=== PATIENT | male | born 1930 | race Caucasian/White ===

== ENCOUNTER 2016-09-13 11:33 | Day surgery (SDC) | payer MEDICARE, BC ==
[2016-09-01 08:30] VITALS: BMI 29.0
[2016-09-13] MEDS ORDERED: ceFAZolin 2 GM in SODIUM CHLORIDE 0.9% 100 ML IVPB ONE (11:57)
[2016-09-13] MEDS ORDERED: SODIUM CHLORIDE 0.9% 1,000 ML IV SCH (11:57)
[2016-09-13 12:15] VITALS: PULSE 65; RESP 20
[2016-09-13 12:18] VITALS: TEMP 98.1
[2016-09-13] MEDS ORDERED: hydrALAZINE HCL 25 MG TAB PO STA (12:26)
[2016-09-13] MEDS ORDERED: LOSARTAN-HCTZ 50-12.5 MG 1 EACH TAB PO SCH (12:30)
[2016-09-13] MEDS ORDERED: LIDOCAINE 1% INJ 10MG/ML (20 ML MDV) SQ ONE (14:11)
[2016-09-13 14:32] VITALS: BP 195/90
--- NOTE | 2016-09-13 16:39 | P.PCN ---
Preoperative Diagnosis: Loop explant under sedation and local anesthesia. Patient was brought to the EP lab in a fasting state. Written informed consent was obtained prior to the procedure. The subcutaneous device was successfully explanted under local anesthesia. Preoperative antibiotics were administered. The wound was closed in layers and dressed per protocol. Result: Successful loop monitor explantation.
== END 2016-09-13 15:10 | disposition home or self-care (01) ==
LOC: CATHEP 11:33
PROVIDERS: ATTEND Internal Medicine Clinical Cardiac Electrophysiology
DX: I48.0 Paroxysmal atrial fibrillation (principal); Z45.09 Encounter for adjustment and management of other cardiac device; G45.9 Transient cerebral ischemic attack, unspecified; I45.2 Bifascicular block; I10 Essential (primary) hypertension; Z87.891 Personal history of nicotine dependence; Z82.49 Family history of ischemic heart disease and other diseases of the circulatory system; I71.4 Abdominal aortic aneurysm, without rupture; Z79.899 Other long term (current) drug therapy; Z88.0 Allergy status to penicillin
CPT/HCPCS: 33284; J0690; J2001

== ENCOUNTER → 2018-10-01 | Outpatient (CLI) | payer MEDICARE, BC ==
--- NOTE | 2018-10-01 10:50 | CT ---
EXAMINATION TYPE: CT brain wo con DATE OF EXAM: 10/01/2018 HISTORY: subdural hematoma, hygroma, memory, speech issues. CT DLP: 1012.70 mGycm. Automated Exposure Control for Dose Reduction was Utilized. TECHNIQUE: CT scan of the head is performed without contrast. COMPARISON: CT brain August 25, 2013. FINDINGS: There are new peripheral fluid collections of CSF density over bilateral high frontal par ietal regions, left larger than right measuring up to 17 mm in thickness on the left axial image 44 a nd 9 mm in thickness on the right same image. No suspicious hypodensity is seen. No midline shift is noted. There is high left frontal marce hole with overlying skin ramu. There is diffuse ventricular and sulcal prominence consistent with diffuse age-related cerebral atrophy. There is low-attenuatio n in the periventricular white matter consistent with chronic small vessel ischemic change. Scleral c alcification both globes are seen. Vascular calcification of distal internal carotid artery and verte bral basilar system is noted with dominant left vertebral artery redemonstrated. Visualized paranasal sinuses are clear. IMPRESSION: No acute intracranial hemorrhage or midline shift. There is mild to moderate diffuse ag e-related cerebral atrophy and chronic small vessel ischemic change redemonstrated. There are new sm all to moderate size left greater than right chronic subdural hematomas or subdural hygromas noted.
== END | disposition home or self-care (01) ==
LOC: RADCTMAIN 09:49
PROVIDERS: ATTEND Neurological Surgery
DX: G31.1 Senile degeneration of brain, not elsewhere classified (principal); I67.82 Cerebral ischemia
CPT/HCPCS: 70450

== ENCOUNTER 2018-10-22 18:32 | Emergency (ER) | payer MEDICARE, BC ==
--- NOTE | 2018-10-22 19:02 | ED ---
General Adult HPI - General Stated complaint: Stroke Time Seen by Provider: 10/22/18 18:38 Source: patient, EMS Mode of arrival: EMS Limitations: no limitations - History of Present Illness Initial comments: This 88-year-old white male presents to the emergency department by EMS from [facility]. He apparently had an outpatient computed tomography scan today which shows worsening of his previously known subdural hematoma. He presents to the radiology report that shows that his subdural hematoma along the left index and the is currently 1.9 cm and was previously 1.4 cm. Appears to be evidence of interval bleeding. His previous CT was done on 09/18/2018. He does relate that he had craniotomy on 09/19/2018 at [facility]. The patient is essentially asymptomatic at this time. He denies any headache, shortness breath, chest pain, fevers, chills. He denies any neurologic complaints. Records do show that he was just at [facility] back on 04/2019 as an inpatient they do note that he had a left frontal subdural hematoma at that time which measures 1.4 cm. He was previously on his overall low but is no longer on this blood thinner. The records from [facility] relate that he had some falls back in August 2018 and was initially diagnosed with a subdural hematoma at that time. He had been having some headaches but denies any current headaches. Per records patient is a full code. No other identifiable complaints or modifying factors. Past medical history as best for hypertension subdural hematoma chronic kidney disease stage III> He is allergic to penicillin. His past surgical history is positive for craniotomy on 09/19/2018, colonoscopy, and EGD. - Related Data Home Medications Medication Instructions Recorded Confirmed Brimonidine Tartrate [Alphagan P 1 drops BOTH EYES 09/01/16 10/22/18 0.2% Ophth Soln] TID@0600,1400,2100 Pravastatin Sodium [Pravachol] 20 mg PO HS@209909/01/16 10/22/18 Tamsulosin [Flomax] 0.4 mg PO DAILY@0800 09/01/16 10/22/18 hydrALAZINE HCL [Apresoline] 25 mg PO TID@0600,1400,2100 09/01/16 10/22/18 Acetaminophen Tab [Tylenol Tab] 650 mg PO Q4H PRN 10/22/18 10/22/18 Bisacodyl [Dulcolax] 10 mg RECTAL DAILY PRN 10/22/18 10/22/18 Docusate [Colace] 100 mg PO BID@0800,1700 10/22/18 10/22/18 HYDROcodone/APAP 5-325MG [Holley 1 tab PO Q6H PRN 10/22/18 10/22/18 5-325] Hydrochlorothiazide 12.5 mg PO DAILY@0800 10/22/18 10/22/18 Losartan Potassium 100 mg PO DAILY@0800 10/22/18 10/22/18 Magnesium Hydroxide [Milk of 2,400 mg PO DAILY PRN 10/22/18 10/22/18 Magnesia] NIFEdipine XL [Procardia Xl] 60 mg PO DAILY@0800 10/22/18 10/22/18 Na Phos,M-B/Na Phos,Di-Ba [Fleet 133 ml RECTAL DAILY PRN 10/22/18 10/22/18 Adult] Sodium Chloride Tab 2 gm PO TID@0600,1400,2100 10/22/18 10/22/18 Timolol 0.5% Ophth Soln (Pf) 1 drops BOTH EYES DAILY@0800 10/22/18 10/22/18 [Timoptic 0.5% Ocudose] levETIRAcetam [Keppra] 500 mg PO BID@0800,2100 10/22/18 10/22/18 Allergies Allergy/AdvReac Type Severity Reaction Status Date / Time Penicillins Allergy Unknown Verified 10/22/18 18:46 Review of Systems ROS Statement: Those systems with pertinent positive or pertinent negative responses have been documented in the HPI. ROS Other: All systems not noted in ROS Statement are negative. Past Medical History Past Medical History: Eye Disorder, GERD/Reflux, Memory Impairment, Osteoarthritis (OA), Prostate Disorder Additional Past Medical History / Comment(s): see Dr Rocio Hastings & P, glaucoma, subdural bleed acute on chronic History of Any Multi-Drug Resistant Organisms: None Reported Past Surgical History: Cholecystectomy, Joint Replacement Additional Past Surgical History / Comment(s): cataract surg., left hip replaced Past Anesthesia/Blood Transfusion Reactions: No Reported Reaction Past Psychological History: No Psychological Hx Reported Smoking Status: Former smoker Past Alcohol Use History: None Reported Past Drug Use History: None Reported - Past Family History Mother Family Medical History: No Reported History General Exam - General Exam Comments Initial Comments: GENERAL: The patient is well nourished and well hydrated. VITAL SIGNS: Heart rate, blood pressure, respiratory rate reviewed as recorded in nurse's notes. EYES: Pupils are round and reactive. Extraocular movements are intact. No conjunctival / lid redness or swelling. ENT: No external evidence of injury, swelling, or ecchymosis. Airway is patent. Throat is clear. NECK: Nontender. No swelling or evidence of injury. No subcutaneous emphysema. Trachea is midline. No thyroid mass. HEART: Regular rate and rhythm. Good peripheral pulses. LUNGS/CHEST: Breath sounds clear and equal bilaterally. No rales, rhonchi, or wheezes. No ecchymosis, subcutaneous emphysema, or tenderness. ABDOMEN: Abdomen soft without tenderness. No palpable masses or organomegaly. No peritoneal signs. No abdominal wall swelling or ecchymosis. EXTREMITIES: No extremity tenderness. Normal muscle tone and function. No thoracolumbar tenderness. NEUROLOGIC: Sensation is grossly intact. Cranial nerve exam reveals face is symmetrical, tongue is midline, speech is clear. SKIN: No abrasions or ecchymosis is noted. No induration or masses noted. PSYCHIATRIC: Alert and pleasant, slightly confused. Limitations: no limitations Course Vital Signs 10/22/18 18:42 Temperature 98.7 F Pulse Rate 71 Respiratory 20 Rate Blood Pressure 192/89 O2 Sat by Pulse 98 Oximetry Medical Decision Making - Medical Decision Making The patient was seen and examined. All diagnostics were reviewed. An IV is established and he is placed on a bus driver/monitor. No ectopy is identified. The patient also has an EKG which shows a normal sinus rhythm at a rate of 71. There is a right bundle-branch block as well as left anterior fascicular block with associated ST-T wave changes. The [place] intervals 162, QRS duration is 152, and the QTC intervals 484. Records from the [facility] were reviewed. The CT does show interval enlargement of subdural hematoma along the left convexity. It apparently is 1.9 cm now versus 1.4 cm previously with evidence of interval bleeding. Density presently is compatible with subacute subdural hematoma with couple small areas of interval mixed acute blood products. There is mass effect on 2 the left cerebral cortex with slight increase in the degree of rightward midline shift now 5 mm versus 2 mm previously. There is similar slight subfalcine herniation. It is felt as though he would require transfer to a center that has neurosurgical capabilities. He requests transfer back to [facility] in [place] where he was seen previously by neurosurgery and had a craniotomy. Case is discussed with Dr. Pate from [facility] in [place] and he accepts the patient at 1911. Disposition Clinical Impression: Subdural hematoma Disposition: OTHER INSTITUTION NOT DEFINED Condition: Fair Is patient prescribed a controlled substance at d/c from ED?: No Referrals: Altagracia Bullard MD [Primary Care Provider] - 1-2 days Time of Disposition: 19:14 - Out of Hospital Transfer - Req. Specs Out of Hospital Transfer - Requested Specifics: Neurological ICU ([facility])
[2018-10-22 19:19] LABS: Basophils # (A) 0.1 k/uL (0-0.2); Basophils % (A) 1 %; Eosinophils # (A) 0.3 k/uL (0-0.7); Eosinophils % (A) 3 %; HCT 38.1 % (39.0-53.0); HGB 12.9 gm/dL (13.0-17.5); Lymphocytes # (A) 1.1 k/uL (1.0-4.8); Lymphocytes % (A) 15 %; MCH 30.6 pg (25.0-35.0); MCHC 33.9 g/dL (31.0-37.0); MCV 90.2 fL (80.0-100.0); Mean Platelet Volume 6.7; Monocytes # (A) 0.4 k/uL (0-1.0); Monocytes % (A) 5 %; Neutrophils # (A) 5.7 k/uL (1.3-7.7); Neutrophils % (A) 75 %; Platelet Count 194 k/uL (150-450); RBC 4.22 m/uL (4.30-5.90); RDW 13.4 % (11.5-15.5); WBC 7.6 k/uL (3.8-10.6)
[2018-10-22 19:33] LABS: Calcium 9.4 mg/dL (8.4-10.2); Potassium 3.6 mmol/L (3.5-5.1)
[2018-10-22 19:52] LABS: Partial Thromboplastin Time 24.7 sec (22.0-30.0); Prothrombin Time 10.3 sec (9.0-12.0)
[2018-10-22 19:55] VITALS: BP 178/85; PULSE 52; RESP 17
--- NOTE | 2018-10-22 19:56 | XR ---
EXAMINATION TYPE: XR chest 1V DATE OF EXAM: 10/22/2018 COMPARISON: Chest x-ray August 22, 2013 HISTORY: Weakness. TECHNIQUE: Single frontal view of the chest is obtained. FINDINGS: There is chronic parenchymal change without suspicious focal air space opacity, pleural ef fusion, or pneumothorax seen. The cardiac silhouette size is upper limits of normal with atheroscler otic and ectatic thoracic aorta, mass effect and trachea is redemonstrated. The osseous structures remain somewhat demineralized. Cannot exclude new right upper lobe nodule projecting over the posterior fifth rib and the anterior s econd rib. Nonemergent CT follow-up advised. IMPRESSION: Chronic parenchyma change without acute pulmonary process.
[2018-10-22 20:25] VITALS: TEMP 98.6
== END 2018-10-22 20:18 | disposition short-term general hospital (02) ==
LOC: EC 18:32
DX: I62.00 Nontraumatic subdural hemorrhage, unspecified (principal); I45.2 Bifascicular block; M19.90 Unspecified osteoarthritis, unspecified site; I12.9 Hypertensive chronic kidney disease with stage 1 through stage 4 chronic kidney disease, or unspecified chronic kidney disease; N18.3 Chronic kidney disease, stage 3 (moderate); Z79.899 Other long term (current) drug therapy; Z88.0 Allergy status to penicillin; Z87.891 Personal history of nicotine dependence; Z96.642 Presence of left artificial hip joint
CPT/HCPCS: 36415; 71045; 80048; 85025; 85610; 85730; 93005; 99285

== ENCOUNTER 2018-11-28 15:53 | Observation (INO) | payer MEDICARE, BC ==
[2018-11-28] MEDS ORDERED: ASPIRIN 81 MG PO STA (16:26)
[2018-11-28] MEDS ORDERED: NITROGLYCERIN OINT 1 INCH/GM PACKET TOPICAL STA (16:26)
--- NOTE | 2018-11-28 16:32 | ED ---
General Adult HPI - General Chief complaint: Chest Pain Stated complaint: Chest pain Source: patient, EMS, RN notes reviewed Mode of arrival: EMS Limitations: no limitations - History of Present Illness Initial comments: This is an 88-year-old male who presents to the emergency department complaining of chest pain. Patient's had multiple episodes chest pain since yesterday fam akshat believes it lasts 10-15 minutes. Patient is not a very good historian so he cannot elaborate on this. Patient never appeared to be having any shortness of breath. Patient had no fever chills or cough per patient has had no vomiting or diarrhea. Also family states that he was post get a CAT scan of his brain on Monday because he has a shunt and they've noticed just a little change in his al tered mental status. Family states it takes him just a little bit longer to say something and it did a few weeks ago. Patient has had no recent injury or fall. - Related Data Home Medications Medication Instructions Recorded Confirmed Brimonidine Tartrate [Alphagan P 1 drops BOTH EYES 09/01/16 11/28/18 0.2% Ophth Soln] TID@0600,1400,2200 Pravastatin Sodium [Pravachol] 20 mg PO HS@199909/01/16 11/28/18 Tamsulosin [Flomax] 0.4 mg PO DAILY@0800 09/01/16 11/28/18 hydrALAZINE HCL [Apresoline] 75 mg PO TID@0600,1400,199909/01/16 11/28/18 Acetaminophen Tab [Tylenol Tab] 650 mg PO Q4H PRN 10/22/18 11/28/18 Docusate [Colace] 100 mg PO BID@0800,199910/22/18 11/28/18 Losartan Potassium 100 mg PO DAILY@1600 10/22/18 11/28/18 NIFEdipine XL [Procardia Xl] 60 mg PO DAILY@0800 10/22/18 11/28/18 Timolol 0.5% Ophth Soln (Pf) 1 drops BOTH EYES HS@199910/22/18 11/28/18 [Timoptic 0.5% Ocudose] levETIRAcetam [Keppra] 500 mg PO BID@0800,199910/22/18 11/28/18 Labetalol [Trandate] 100 mg PO BID@0600,1800 11/28/18 11/28/18 Ramelteon [Rozerem] 8 mg PO HS@2000 11/28/18 11/28/18 Allergies Allergy/AdvReac Type Severity Reaction Status Date / Time Penicillins Allergy Unknown Verified 11/28/18 16:31 Review of Systems ROS Statement: Those systems with pertinent positive or pertinent negative responses have been documented in the HPI. ROS Other: All systems not noted in ROS Statement are negative. Past Medical History Past Medical History: Eye Disorder, GERD/Reflux, Memory Impairment, Osteoa rthritis (OA), Prostate Disorder Additional Past Medical History / Comment(s): see Dr Chan H & P, glaucoma, subdural bleed acute on chronic History of Any Multi-Drug Resistant Organisms: None Reported Past Surgical History: Cholecystectomy, Joint Replacement Additional Past Surgical History / Comment(s): cataract surg., left hip replaced Past Anesthesia/Blood Transfusion Reactions: No Reported Reaction Past Psychological History: No Psychological Hx Reported Smoking Status: Former smoker Past Alcohol Use History: None Reported Past Drug Use History: None Reported - Past Family History Mother Family Medical History: No Reported History General Exam - General Exam Comments Initial Comments: GENERAL: Patient is well-developed and well-nourished. Patient is nontoxic and well- hydrated and is in no acute distress. ENT: Neck is soft and supple. No significant lymphadenopathy is noted. Oropharynx is clear. Moist mucous membranes. Neck has full range of motion without eliciting any pain. EYES: The sclera were anicteric and conjunctiva were pink and moist. Extraocular movements were intact and pupils were equal round and reactive to light. Eyelids were unremarkable. PULMONARY: Unlabored respirations. Good breath sounds bilaterally. No audible rales rhonchi or wheezing was noted. CARDIOVASCULAR: Patient has a regular rate and rhythm at about 50 beats a minute ABDOMEN: Soft and nontender with normal bowel sounds. No palpable organomegaly was noted. There is no palpable pulsatile mass. SKIN: Skin is clear with no lesions or rashes and otherwise unremarkable. NEUROLOGIC: Patient is alert and oriented 2. Cranial nerves II through XII are grossly intact. Motor and sensory are also intact. Normal speech, volume and content. Symmetrical smile. MUSCULOSKELETAL: Normal extremities with adequate strength and full range of motion. No lower extremity swelling or edema. No calf tenderness. LYMPHATICS: No significant lymphadenopathy is noted PSYCHIATRIC: Normal psychiatric evaluation. Limitations: no limitations Course Vital Signs 11/28/18 11/28/18 11/28/18 16:12 16:15 17:48 Temperature 98.0 F Pulse Rate 57 L 51 L Pulse Rate [ 50 L Bilateral Farm Equipment Mechanic ] Respiratory 18 18 Rate Blood Pressure 157/71 157/72 O2 Sat by Pulse 99 100 Oximetry 11/28/18 18:31 Temperature Pulse Rate 51 L Pulse Rate [ Bilateral Farm Equipment Mechanic ] Respiratory 18 Rate Blood Pressure 135/70 O2 Sat by Pulse 97 Oximetry Medical Decision Making - Medical Decision Making EKG shows sinus bradycardia 55 bpm WA interval 276 QS on a 50 QT interval 42 QTC is 461. Patient's EKG shows right bundle branch block. There is no significant ST segment elevation. CT of the brain shows improvement of the hygromas. Chest x-ray shows no acute abnormality. Patient still having intermittent atypical chest pain in the emergency dep artment. Patient did not get any aspirin or heparin secondary to the fact that the patient has had intercranial hemorrhage in the past. - Lab Data Result diagrams: 11/28/18 16:06 11/28/18 16:06 Lab Results 11/28/18 11/28/18 11/28/18 Range/Units 16:06 16:06 16:06 WBC 6.8 (3.8-10.6) k/uL RBC 3.72 L (4.30-5.90) m/uL Hgb 11.1 L (13.0-17.5) gm/dL Hct 34.7 L (39.0-53.0) % MCV 93.3 (80.0-100.0) fL MCH 29.9 (25.0-35.0) pg MCHC 32.0 (31.0-37.0) g/dL RDW 13.3 (11.5-15.5) % Plt Count 182 (150-450) k/uL Neutrophils % 73 % Lymphocytes % 15 % Monocytes % 6 % Eosinophils % 3 % Basophils % 1 % Neutrophils # 4.9 (1.3-7.7) k/uL Lymphocytes # 1.0 (1.0-4.8) k/uL Monocytes # 0.4 (0-1.0) k/uL Eosinophils # 0.2 (0-0.7) k/uL Basophils # 0.0 (0-0.2) k/uL PT 10.4 (9.0-12.0) sec INR 1.0 (<1.2) APTT 26.2 (22.0-30.0) sec Sodium 138 (137-145) mmol/L Potassium 5.1 (3.5-5.1) mmol/L Chloride 103 (98-107) mmol/L Carbon Dioxide 27 (22-30) mmol/L Anion Gap 8 mmol/L BUN 27 H (9-20) mg/dL Creatinine 1.34 H (0.66-1.25) mg/dL Est GFR (CKD-EPI)AfAm 55 (>60 ml/min/1.73 sqM) Est GFR (CKD-EPI)NonAf 48 (>60 ml/min/1.73 sqM) Glucose 87 (74-99) mg/dL Calcium 9.2 (8.4-10.2) mg/dL Magnesium 2.4 H (1.6-2.3) mg/dL Total Bilirubin 0.7 (0.2-1.3) mg/dL AST 25 (17-59) U/L ALT 15 L (21-72) U/L Alkaline Phosphatase 55 (38-126) U/L Troponin I (0.000-0.034) ng/mL Total Protein 6.6 (6.3-8.2) g/dL Albumin 3.6 (3.5-5.0) g/dL 11/28/18 Range/Units 16:06 WBC (3.8-10.6) k/uL RBC (4.30-5.90) m/uL Hgb (13.0-17.5) gm/dL Hct (39.0-53.0) % MCV (80.0-100.0) fL MCH (25.0-35.0) pg MCHC (31.0-37.0) g/dL RDW (11.5-15.5) % Plt Count (150-450) k/uL Neutrophils % % Lymphocytes % % Monocytes % % Eosinophils % % Basophils % % Neutrophils # (1.3-7.7) k/uL Lymphocytes # (1.0-4.8) k/uL Monocytes # (0-1.0) k/uL Eosinophils # (0-0.7) k/uL Basophils # (0-0.2) k/uL PT (9.0-12.0) sec INR (<1.2) APTT (22.0-30.0) sec Sodium (137-145) mmol/L Potassium (3.5-5.1) mmol/L Chloride (98-107) mmol/L Carbon Dioxide (22-30) mmol/L Anion Gap mmol/L BUN (9-20) mg/dL Creatinine (0.66-1.25) mg/dL Est GFR (CKD-EPI)AfAm (>60 ml/min/1.73 sqM) Est GFR (CKD-EPI)NonAf (>60 ml/min/1.73 sqM) Glucose (74-99) mg/dL Calcium (8.4-10.2) mg/dL Magnesium (1.6-2.3) mg/dL Total Bilirubin (0.2-1.3) mg/dL AST (17-59) U/L ALT (21-72) U/L Alkaline Phosphatase (38-126) U/L Troponin I <0.012 (0.000-0.034) ng/mL Total Protein (6.3-8.2) g/dL Albumin (3.5-5.0) g/dL Disposition Clinical Impression: Chest pain Disposition: ADMITTED IP TO THIS HOSP Referrals: None,Stated [REFERRING] - 1-2 days Time of Disposition: 19:08
--- NOTE | 2018-11-28 17:49 | CT ---
EXAMINATION TYPE: CT brain wo con DATE OF EXAM: 11/28/2018 COMPARISON: 10/01/2018 HISTORY: Altered mental status. CT DLP: 1066.4 mGycm Automated exposure control for dose reduction was used. FINDINGS: There is cerebral cortical atrophy. There is no mass effect nor midline shift. There is no sign of in tracranial hemorrhage. Calvarium is intact. There is left frontal craniotomy defect. IMPRESSION: CEREBRAL ATROPHY. MILD CHRONIC SMALL VESSEL ISCHEMIA. NO ACUTE INTRACRANIAL ABNORMALITY. THERE IS SLIME ARING OF THE BILATERAL SUBDURAL HYGROMAS COMPARED TO OLD EXAM.
--- NOTE | 2018-11-28 17:52 | XR ---
EXAMINATION TYPE: XR chest 2V DATE OF EXAM: 11/28/2018 COMPARISON: 10/22/2018 HISTORY: Left side chest pain TECHNIQUE: Frontal and lateral views of the chest are obtained. FINDINGS: Heart is normal. Lungs are clear of infiltrate. There is minimal nodularity in the right m idlung consistent with old granulomatous disease. There is no pleural effusion. Thoracic aorta is ath eromatous. Bony thorax is intact. IMPRESSION: Atheromatous aorta. No acute lung disease. Normal heart. No adverse change compared to o ld exam. There is no evidence of right upper lobe nodule. Old granulomatous disease.
[2018-11-28 17:57] LABS: Basophils % (A) 1 %; Eosinophils # (A) 0.2 k/uL (0-0.7); Eosinophils % (A) 3 %; HCT 34.7 % (39.0-53.0); HGB 11.1 gm/dL (13.0-17.5); Lymphocytes % (A) 15 %; MCH 29.9 pg (25.0-35.0); MCV 93.3 fL (80.0-100.0); Mean Platelet Volume 8.4; Monocytes # (A) 0.4 k/uL (0-1.0); Monocytes % (A) 6 %; Neutrophils # (A) 4.9 k/uL (1.3-7.7); Neutrophils % (A) 73 %; Platelet Count 182 k/uL (150-450); RBC 3.72 m/uL (4.30-5.90); RDW 13.3 % (11.5-15.5); WBC 6.8 k/uL (3.8-10.6)
[2018-11-28 18:08] LABS: Partial Thromboplastin Time 26.2 sec (22.0-30.0); Prothrombin Time 10.4 sec (9.0-12.0)
[2018-11-28 18:18] LABS: Albumin 3.6 g/dL (3.5-5.0); Calcium 9.2 mg/dL (8.4-10.2); Magnesium 2.4 mg/dL (1.6-2.3); Total Bilirubin 0.7 mg/dL (0.2-1.3); Total Protein 6.6 g/dL (6.3-8.2)
[2018-11-28 18:20] LABS: Potassium 5.1 mmol/L (3.5-5.1)
[2018-11-28] MEDS ORDERED: NITROGLYCERIN SL TABS 0.4 MG TAB SUBLINGUAL PRN (19:08)
[2018-11-28] MEDS ORDERED: ACETAMINOPHEN TAB 325 MG TAB PO PRN (22:53)
[2018-11-28] MEDS ORDERED: PRAVASTATIN SODIUM 20 MG TAB PO SCH (23:00)
[2018-11-28] MEDS ORDERED: TIMOLOL 0.5% OPHTH SOLN (PF) 0.2 ML DROPERETTE BOTH EYES SCH (23:00)
[2018-11-29] MEDS: BRIMONIDINE TARTRATE 0.2% DROPS 5 ML BTL BOTH EYES SCH ×3 (00:26→16:54)
[2018-11-29] MEDS: hydrALAZINE HCL 25 MG TAB PO SCH ×3 (00:30→14:41)
[2018-11-29] MEDS ORDERED: ZOLPIDEM 5 MG TAB PO SCH (00:30)
[2018-11-29] MEDS: levETIRAcetam 500 MG TAB PO SCH ×2 (00:31→09:12)
[2018-11-29] MEDS: LABETALOL 100 MG TAB PO SCH ×2 (00:31→05:18)
[2018-11-29 00:59] VITALS: BMI 23.8
[2018-11-29 06:22] LABS: Cholesterol 113 mg/dL (<200); HDL Cholesterol 33 mg/dL (40-60); LDL Cholesterol,Calculated 62 mg/dL (0-99); Triglycerides 88 mg/dL (<150)
[2018-11-29] MEDS ORDERED: DOCUSATE 100 MG CAP PO SCH (08:00)
[2018-11-29 08:18] VITALS: RESP 18
[2018-11-29] MEDS ORDERED: ASPIRIN 325 MG TAB PO SCH (09:00)
[2018-11-29] MEDS ORDERED: SODIUM CHLORIDE 0.9% 1,000 ML IV SCH (11:15)
[2018-11-29 11:44] LABS: Appearance,Urine Clear (Clear); Bacteria,Urine Rare /hpf; Bilirubin,Urine Negative (Negative); Blood,Urine Negative (Negative); Color,Urine Yellow; Glucose,Urine (UA) Negative (Negative); Ketones,Urine Negative (Negative); Leukocyte Esterase,Urine Small (Negative); Mucus,Urine Rare /hpf; Nitrite,Urine Negative (Negative); PH, Urine 7.5 (5.0-8.0); Protein,Urine Trace (Negative); Specific Gravity,Urine 1.012 (1.001-1.035); Squamous Epithelial Cell,Urine <1 /hpf (0-4); Urobilinogen,Urine <2.0 mg/dL (<2.0); WBC,Urine 4 /hpf (0-5)
[2018-11-29] MEDS ORDERED: SODIUM CHLORIDE 0.9% 1,000 ML IV ONE (11:56)
--- NOTE | 2018-11-29 12:40 | P.HPIM ---
History of Present Illness 71-year-old pleasant gentleman came in with complaints of chest pain on the side of the chest which lasted for 2 minutes, mild chest pain nonpleuritic not associated with lightheadedness questionable diaphoresis. Not associated with food denied any nausea vomiting diarrhea, fever chills. Patient does have history of dementia mental status appears to be baseline alert oriented 3 able to provide me good history denied any dysuria denied any cough runny nose. Patient appears to be bit dehydrated with a serum creatinine of 1.34 baseline around 1.1 patient will be given IV fluids. Cardiology valid the patient troponins are negative please refer to cardiology dictation for EKG changes and patient will undergo echocardiogram and if further doesn't show any wall motion abnormalities patient will be discharged today back to where he came from. Patient doesn't have any increased confusion at this time. He denied dysuria c ough runny nose no evidence of fever sepsis. No leukocytosis Review of Systems REVIEW OF SYSTEMS: CONSTITUTIONAL: No fever, no malaise, no fatigue. HEENT: No recent visual problems or hearing problems. Denied any sore throat. CARDIOVASCULAR: No orthopnea, PND, no palpitations, no syncope. PULMONARY: No shortness of breath, no cough, no hemoptysis. GASTROINTESTINAL: No diarrhea, no nausea, no vomiting, no abdominal pain. NEUROLOGICAL: No headaches, no weakness, no numbness. HEMATOLOGICAL: Denies any bleeding or petechiae. GENITOURINARY: Denies any burning micturition, frequency, or urgency. MUSCULOSKELETAL/RHEUMATOLOGICAL: Denies any joint pain, swelling, or any muscle pain. ENDOCRINE: Denies any polyuria or polydipsia. The rest of the 14-point review of systems is negative. Past Medical History Past Medical History: Cancer, CVA/TIA, Dementia, Eye Disorder, GERD/Reflux, Memory Impairment, Osteoarthritis (OA), Prostate Disorder Additional Past Medical History / Comment(s): see Dr Chan H & P, glaucoma, subdural bleed acute on chronic x2 ([employer]). History of Any Multi-Drug Resistant Organisms: None Reported Past Surgical History: Cholecystectomy, Joint Replacement Additional Past Surgical History / Comment(s): cataract surg., left hip replaced Past Anesthesia/Blood Transfusion Reactions: No Reported Reaction Past Psychological History: No Psychological Hx Reported Smoking Status: Former smoker Past Alcohol Use History: None Reported Additional Past Alcohol Use History / Comment(s): quit smoking in the 70's, smoked for 10-15 yrs. Past Drug Use History: None Reported - Past Family History Mother Family Medical History: No Reported History Father Family Medical History: No Reported History Medications and Allergies Home Medications Medication Instructions Recorded Confirmed Type Brimonidine Tartrate [Alphagan P 1 drops BOTH EYES 09/01/16 11/28/18 History 0.2% Ophth Soln] TID@0600,1400,2200 Pravastatin Sodium [Pravachol] 20 mg PO HS@199909/01/16 11/28/18 History Tamsulosin [Flomax] 0.4 mg PO DAILY@0800 09/01/16 11/28/18 History Acetaminophen Tab [Tylenol Tab] 650 mg PO Q4H PRN 10/22/18 11/28/18 History Docusate [Colace] 100 mg PO BID@0800,199910/22/18 11/28/18 History Losartan Potassium 100 mg PO DAILY@1600 10/22/18 11/28/18 History NIFEdipine XL [Procardia Xl] 60 mg PO DAILY@0800 10/22/18 11/28/18 History Timolol 0.5% Ophth Soln (Pf) 1 drops BOTH EYES HS@199910/22/18 11/28/18 History [Timoptic 0.5% Ocudose] levETIRAcetam [Keppra] 500 mg PO BID@0800,199910/22/18 11/28/18 History Ramelteon [Rozerem] 8 mg PO HS@199911/28/18 11/28/18 History Labetalol [Trandate] 50 mg PO BID@0600,1800 #0 11/29/18 11/28/18 Rx hydrALAZINE HCL [Apresoline] 100 mg PO TID #90 tab 11/29/18 Rx Allergies Allergy/AdvReac Type Severity Reaction Status Date / Time Penicillins Allergy Unknown Verified 11/28/18 16:31 Physical Exam Vitals: Vital Signs Temp Pulse Pulse Pulse Resp BP BP 11/29/18 08:00 97.5 F L 60 18 160/69 11/29/18 05:20 50 L 17 155/80 11/29/18 04:07 97.3 F L 53 L 16 144/58 11/29/18 03:34 53 L 16 11/29/18 00:37 97.7 F 63 16 144/68 11/29/18 00:00 63 16 11/28/18 22:30 97.8 F 57 L 16 145/62 11/28/18 22:03 55 L 16 155/73 11/28/18 20:20 17 11/28/18 18:31 51 L 18 135/70 11/28/18 17:48 51 L 18 157/72 11/28/18 16:15 50 L 11/28/18 16:12 98.0 F 57 L 18 157/71 Pulse Ox 11/29/18 08:00 95 11/29/18 05:20 98 11/29/18 04:07 97 11/29/18 03:34 11/29/18 00:37 98 11/29/18 00:00 11/28/18 22:30 100 11/28/18 22:03 99 11/28/18 20:20 11/28/18 18:31 97 11/28/18 17:48 100 11/28/18 16:15 11/28/18 16:12 99 Intake and Output 11/28/18 11/29/18 11/29/18 22:59 06:59 14:59 Other: Voiding Method Toilet Toilet Urinal Urinal # Voids 2 1 Weight 71.214 kg PHYSICAL EXAMINATION: GENERAL: The patient is alert and oriented x3, not in any acute distress. Well developed, well nourished. HEENT: Pupils are round and equally reacting to light. EOMI. No scleral icterus. No conjunctival pallor. Normocephalic, atraumatic. No pharyngeal erythema. No thyromegaly. CARDIOVASCULAR: S1 and S2 present. No murmurs, rubs, or gallops. PULMONARY: Chest is clear to auscultation, no wheezing or crackles. ABDOMEN: Soft, nontender, nondistended, normoactive bowel sounds. No palpable organomegaly. MUSCULOSKELETAL: No joint swelling or deformity. EXTREMITIES: No cyanosis, clubbing, or pedal edema. NEUROLOGICAL: Gross neurological examination did not reveal any focal deficits. SKIN: No rashes. Results CBC & Chem 7: 11/28/18 16:06 11/28/18 16:06 Labs: Abnormal Lab Results - Last 24 Hours (Table) 11/28/18 11/28/18 11/29/18 Range/Units 16:06 16:06 05:43 RBC 3.72 L (4.30-5.90) m/uL Hgb 11.1 L (13.0-17.5) gm/dL Hct 34.7 L (39.0-53.0) % BUN 27 H (9-20) mg/dL Creatinine 1.34 H (0.66-1.25) mg/dL Magnesium 2.4 H (1.6-2.3) mg/dL ALT 15 L (21-72) U/L HDL Cholesterol 33 L (40-60) mg/dL Urine Protein (Negative) Ur Leukocyte Esterase (Negative) Urine Bacteria (None) /hpf Urine Mucus (None) /hpf 11/29/18 Range/Units 11:08 RBC (4.30-5.90) m/uL Hgb (13.0-17.5) gm/dL Hct (39.0-53.0) % BUN (9-20) mg/dL Creatinine (0.66-1.25) mg/dL Magnesium (1.6-2.3) mg/dL ALT (21-72) U/L HDL Cholesterol (40-60) mg/dL Urine Protein Trace H (Negative) Ur Leukocyte Esterase Small H (Negative) Urine Bacteria Rare H (None) /hpf Urine Mucus Rare H (None) /hpf Thrombosis Risk Factor Assmnt - Choose All That Apply Any of the Below Risk Factors Present?: Yes Each Risk Factor Represents 3 Points: Age 75 years or older Other congenital or acquired thrombophilia - If yes, enter type in comment: No Thrombosis Risk Factor Assessment Total Risk Factor Score: 3 Thrombosis Risk Factor Assessment Level: Moderate Risk Assessment and Plan Plan: -Chest pain ruled out acute coronary syndromes patient has atypical chest pain. Patient was evaluated by cardiology. 2 echocardiogram is within normal limits patient will be discharged today. 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
--- NOTE | 2018-11-29 12:41 | P.DS ---
Providers Date of admission: 11/28/18 19:08 Attending physician: Charmaine Bagley Consults: 11/28/18 19:08 Consult Physician Urgent Consulting Provider: [facility] Consult Reason/Comments: Chest pain Do you want consulting provider notified?: Yes Primary care physician: Colt Beltre [facility] Course: Please refer to my HPI Plan - Discharge Summary Discharge Rx Participant: No New Discharge Prescriptions: New hydrALAZINE HCL [Apresoline] 100 mg PO TID #90 tab Continue Brimonidine Tartrate [Alphagan P 0.2% Ophth Soln] 1 drops BOTH EYES TID@0600,1400,2200 Tamsulosin [Flomax] 0.4 mg PO DAILY@0800 Pravastatin Sodium [Pravachol] 20 mg PO HS@1999 Timolol 0.5% Ophth Soln (Pf) [Timoptic 0.5% Ocudose] 1 drops BOTH EYES HS@1999 NIFEdipine XL [Procardia XL] 60 mg PO DAILY@0800 Losartan Potassium 100 mg PO DAILY@1600 levETIRAcetam [Keppra] 500 mg PO BID@0800,1999 Docusate [Colace] 100 mg PO BID@0800,1999 Acetaminophen Tab [Tylenol] 650 mg PO Q4H PRN PRN Reason: Pain Ramelteon [Rozerem] 8 mg PO HS@2000 Changed Labetalol [Trandate] 50 mg PO BID@0600,1800 #0 Discontinued hydrALAZINE HCL [Apresoline] 75 mg PO TID@0600,1400,1999 Discharge Medication List Brimonidine Tartrate [Alphagan P 0.2% Ophth Soln] 1 drops BOTH EYES TID@0600,1400,2200 09/01/16 [History] Pravastatin Sodium [Pravachol] 20 mg PO HS@199909/01/16 [History] Tamsulosin [Flomax] 0.4 mg PO DAILY@0800 09/01/16 [History] Acetaminophen Tab [Tylenol] 650 mg PO Q4H PRN 10/22/18 [History] Docusate [Colace] 100 mg PO BID@0800,199910/22/18 [History] Losartan Potassium 100 mg PO DAILY@1600 10/22/18 [History] NIFEdipine XL [Procardia XL] 60 mg PO DAILY@0800 10/22/18 [History] Timolol 0.5% Ophth Soln (Pf) [Timoptic 0.5% Ocudose] 1 drops BOTH EYES HS@199910/22/18 [History] levETIRAcetam [Keppra] 500 mg PO BID@0800,199910/22/18 [History] Ramelteon [Rozerem] 8 mg PO HS@199911/28/18 [History] Labetalol [Trandate] 50 mg PO BID@0600,1800 #0 11/29/18 [Rx] hydrALAZINE HCL [Apresoline] 100 mg PO TID #90 tab 11/29/18 [Rx] Follow up Appointment(s)/Referral(s): None,Stated [REFERRING] - 3 Days
--- NOTE | 2018-11-29 13:58 | P.CRDCN ---
History of Present Illness History of present illness: This is a pleasant 88-year-old male past medical history significant for paroxysmal atrial fibrillation, hypertension, dyslipidemia, dementia, CVA/TIA in the past and history of subdural hematoma September 2018 s/p craniotomy related to a fall. Long-term anticoagulation was discontinued at that time. We have been asked to see the patient in consultation secondary to chest disco mfort. The patient is a very poor historian and is unsure why he is at the hospital. Information is obtained from the chart as well as nursing staff. He apparently was brought in last evening by his family for symptoms of chest discomfort as well as altered mental status. He is seen and examined resting comfortably laying flat in bed with a corporate safety coordinator in the room. He denies symptoms of chest discomfort, shortness of breath, dizziness, nausea, vomiting, palpitations or diaphoresis. EKG reveals sinus bradycardia heart rate of 55 with a right bundle branch block and left anterior fascicular block. No acute ST or T wave abnormalities noted. Consistent with previous EKG. No changes noted. Chest x-ray reveals an erythematous aorta with no acute cardiopulmonary process. CT brain reveals cerebral atrophy, mild chronic small vessel ischemia with no acute intracranial abnormality, clearing of bilateral subdural hygromas compared to old exam. Laboratory data reviewed, WBC 6.8, hemoglobin 11.1, platelets 182, sodium 138, potassium 5.1, creatinine 1.34, GFR 48, magnesium 2.4, cardiac enzymes negative 3. Current cardiac medications include hydralazine 100 mg 3 times a day, labetalol 50 mg twice a day, losartan 100 mg daily, nifedipine XL 60 mg daily, pravastatin 20 mg daily. An accurate review of systems is difficult to obtain secondary to mental status. Patient currently denies all complaints. Blood pressure 160/99 heart rate 60 afebrile maintaining oxygen saturation on r oom air GENERAL: This is a 88-year-old male in no apparent distress at the time of my examination. HEENT: Head is atraumatic, normocephalic. Pupils are equal, round. Sclerae anicteric. Conjunctivae are clear. Mucous membranes of the mouth are moist. Neck is supple. There is no jugular venous distention. No carotid bruit is heard. LUNGS: Clear to auscultation no wheezes, rales or rhonchi. No chest wall tenderness is noted on palpation or with deep breathing. HEART: Regular rate and rhythm without murmurs, rubs or gallops. S1 and S2 heard. ABDOMEN: Soft, nontender. Bowel sounds are heard. No organomegaly noted. EXTREMITIES: No evidence of peripheral edema and no calf tenderness noted. VASCULAR: Radial and dorsalis pedis pulses palpated, no evidence of clubbing. NEUROLOGIC: Patient is awake and alert. Confused about why he is in the hospital. ASSESSMENT Chest pain. An acute coronary event has been ruled out. Paroxysmal atrial fibrillation, anticoagulation has been discontinued secondary to recent fall causing subdural hematoma requiring craniotomy Hypertension Dyslipidemia Dementia PLAN An acute coronary event has been ruled out with no EKG evidence of ischemia and negative cardiac enzymes. Obtain 2-D echocardiogram and Doppler study to assess cardiac structure and f unction. Conservative medical approach recommended. Follow-up with Dr. Chan upon discharge. Thank you kindly for this consultation. Nurse Practitioner note has been reviewed, I agree with a documented findings and plan of care. Patient was seen and examined. Past Medical History Past Medical History: Cancer, CVA/TIA, Dementia, Eye Disorder, GERD/Reflux, Memory Impairment, Osteoarthritis (OA), Prostate Disorder Additional Past Medical History / Comment(s): see Dr Chan H & P, glaucoma, subdural bleed acute on chronic x2 ([facility]). History of Any Multi-Drug Resistant Organisms: None Reported Past Surgical History: Cholecystectomy, Joint Replacement Additional Past Surgical History / Comment(s): cataract surg., left hip replaced Past Anesthesia/Blood Transfusion Reactions: No Reported Reaction Past Psychological History: No Psychological Hx Reported Smoking Status: Former smoker Past Alcohol Use History: None Reported Additional Past Alcohol Use History / Comment(s): quit smoking in the 70's, smoked for 10-15 yrs. Past Drug Use History: None Reported - Past Family History Mother Family Medical History: No Reported History Father Family Medical History: No Reported History Medications and Allergies Home Medications Medication Instructions Recorded Confirmed Type Brimonidine Tartrate [Alphagan P 1 drops BOTH EYES 09/01/16 11/28/18 History 0.2% Ophth Soln] TID@0600,1400,2200 Pravastatin Sodium [Pravachol] 20 mg PO HS@199909/01/16 11/28/18 History Tamsulosin [Flomax] 0.4 mg PO DAILY@0800 09/01/16 11/28/18 History Acetaminophen Tab [Tylenol] 650 mg PO Q4H PRN 10/22/18 11/28/18 History Docusate [Colace] 100 mg PO BID@08,199910/22/18 11/28/18 History Losartan Potassium 100 mg PO DAILY@1600 10/22/18 11/28/18 History NIFEdipine XL [Procardia XL] 60 mg PO DAILY@0800 10/22/18 11/28/18 History Timolol 0.5% Ophth Soln (Pf) 1 drops BOTH EYES HS@199910/22/18 11/28/18 History [Timoptic 0.5% Ocudose] levETIRAcetam [Keppra] 500 mg PO BID@08,199910/22/18 11/28/18 History Ramelteon [Rozerem] 8 mg PO HS@199911/28/18 11/28/18 History Labetalol [Trandate] 50 mg PO BID@0600,1800 #0 11/29/18 11/28/18 Rx hydrALAZINE HCL [Apresoline] 100 mg PO TID #90 tab 11/29/18 Rx Allergies Allergy/AdvReac Type Severity Reaction Status Date / Time Penicillins Allergy Unknown Verified 11/28/18 16:31 Physical Exam Vitals: Vital Signs Temp Pulse Pulse Pulse Resp BP BP 11/29/18 08:00 97.5 F L 60 18 160/69 11/29/18 05:20 50 L 17 155/80 11/29/18 04:07 97.3 F L 53 L 16 144/58 11/29/18 03:34 53 L 16 11/29/18 00:37 97.7 F 63 16 144/68 11/29/18 00:00 63 16 11/28/18 22:30 97.8 F 57 L 16 145/62 11/28/18 22:03 55 L 16 155/73 11/28/18 20:20 17 11/28/18 18:31 51 L 18 135/70 11/28/18 17:48 51 L 18 157/72 11/28/18 16:15 50 L 11/28/18 16:12 98.0 F 57 L 18 157/71 Pulse Ox 11/29/18 08:00 95 11/29/18 05:20 98 11/29/18 04:07 97 11/29/18 03:34 11/29/18 00:37 98 11/29/18 00:00 11/28/18 22:30 100 11/28/18 22:03 99 11/28/18 20:20 11/28/18 18:31 97 11/28/18 17:48 100 11/28/18 16:15 11/28/18 16:12 99 Intake and Output 11/28/18 11/29/18 11/29/18 22:59 06:59 14:59 Other: Voiding Method Toilet Toilet Urinal Urinal # Voids 2 1 Weight 71.214 kg Results 11/28/18 16:06 11/28/18 16:06 Cardiac Enzymes 11/28/18 11/28/18 11/28/18 Range/Units 16:06 16:06 22:07 AST 25 (17-59) U/L Troponin I <0.012 <0.012 (0.000-0.034) ng/mL 11/29/18 Range/Units 05:43 AST (17-59) U/L Troponin I <0.012 (0.000-0.034) ng/mL Coagulation 11/28/18 Range/Units 16:06 PT 10.4 (9.0-12.0) sec APTT 26.2 (22.0-30.0) sec Lipids 11/29/18 Range/Units 05:43 Triglycerides 88 (<150) mg/dL Cholesterol 113 (<200) mg/dL HDL Cholesterol 33 L (40-60) mg/dL CBC 11/28/18 Range/Units 16:06 WBC 6.8 (3.8-10.6) k/uL RBC 3.72 L (4.30-5.90) m/uL Hgb 11.1 L (13.0-17.5) gm/dL Hct 34.7 L (39.0-53.0) % Plt Count 182 (150-450) k/uL Comprehensive Metabolic Panel 11/28/18 Range/Units 16:06 Sodium 138 (137-145) mmol/L Potassium 5.1 (3.5-5.1) mmol/L Chloride 103 (98-107) mmol/L Carbon Dioxide 27 (22-30) mmol/L BUN 27 H (9-20) mg/dL Creatinine 1.34 H (0.66-1.25) mg/dL Glucose 87 (74-99) mg/dL Calcium 9.2 (8.4-10.2) mg/dL AST 25 (17-59) U/L ALT 15 L (21-72) U/L Alkaline Phosphatase 55 (38-126) U/L Total Protein 6.6 (6.3-8.2) g/dL Albumin 3.6 (3.5-5.0) g/dL Current Medications Generic Name Dose Route Start Last Admin Trade Name Freq PRN Reason Stop Dose Admin Acetaminophen 650 mg 11/28/18 22:53 11/29/18 12:17 Tylenol Tab PO 650 mg Q4H PRN Administration Pain Brimonidine Tartrate 1 drops 11/28/18 22:56 11/29/18 05:17 Alphagan P 0.2% Ophth Soln BOTH EYES 1 drops TID@0600,1400,2200 [facility] Administration Docusate Sodium 100 mg 11/29/18 08:00 11/29/18 09:12 Colace PO 100 mg BID@08,1999 [facility] Administration Hydralazine HCl 75 mg 11/28/18 23:00 11/29/18 05:18 Apresoline PO Not Given TID@0600,1400,1999 [facility] Sodium Chloride 1,000 mls @ 100 mls/hr 11/29/18 11:15 Saline 0.9% IV .Q10H [facility] Labetalol HCl 100 mg 11/28/18 23:00 11/29/18 05:18 Trandate PO Not Given BID@0600,1800 [facility] Levetiracetam 500 mg 11/28/18 23:00 11/29/18 09:12 Keppra PO 500 mg BID@799,1999 [facility] Administration Losartan Potassium 100 mg 11/29/18 16:00 Cozaar PO DAILY@1600 [facility] Nifedipine 60 mg 11/29/18 08:00 11/29/18 09:13 Procardia Xl PO 60 mg DAILY@0800 [facility] Administration Nitroglycerin 0.4 mg 11/28/18 19:08 Nitrostat SUBLINGUAL Q5M PRN Chest Pain Pravastatin Sodium 20 mg 11/28/18 23:00 11/29/18 00:31 Pravachol PO 20 mg HS@1999 [facility] Administration Timolol Maleate 1 drops 11/28/18 23:00 11/29/18 01:12 Timoptic Ocudose BOTH EYES Not Given HS@1999 [facility] Zolpidem Tartrate 5 mg 11/29/18 00:30 11/29/18 00:31 Ambien PO 5 mg HS@1999 [facility] Administration Intake and Output 11/28/18 11/29/18 11/29/18 22:59 06:59 14:59 Other: Voiding Method Toilet Toilet Urinal Urinal # Voids 2 1 Weight 71.214 kg 11/28/18 16:06 11/28/18 16:06
--- NOTE | 2018-11-29 14:23 | ECHOF ---
Referral Reason:cp MEASUREMENTS -------- HEIGHT: 172.7 cm WEIGHT: 71.2 kg BP: RVIDd: 2.7 cm (< 3.3) IVSd: 1.2 cm (0.6 - 1.1) LVIDd: 4.5 cm (3.9 - 5.3) LVPWd: 1.3 cm (0.6 - 1.1) IVSs: 1.5 cm LVIDs: 3.9 cm LVPWs: 1.4 cm Ao Diam: 3.5 cm (2.0 - 3.7) AV Cusp: 1.4 cm (1.5 - 2.6) LA Diam: 4.2 cm (2.7 - 3.8) MV EXCURSION: 30.195 mm (> 18.000) MV EF SLOPE: 108 mm/s (70 - 150) EPSS: 0.4 cm MV E Kody: 0.61 m/s MV DecT: 203 ms MV A Kody: 0.75 m/s MV E/A Ratio: 0.82 AV maxP.93 mmHg AV meanP.02 mmHg RAP: 5.00 mmHg RVSP: 31.17 mmHg FINDINGS -------- Sinus rhythm. This was a technically adequate study. The left ventricular size is normal. There is mild concentric left ventricular hypertrophy. Overa ll left ventricular systolic function is low-normal with, an EF between 50 - 55 %. Basal inferior L V wall motion is hypokinetic. The right ventricle is normal in size. The left atrial size is normal. The right atrial size is normal. Aortic valve is trileaflet and is moderately thickened. Peak/mean gradient across the Aortic Valve is 10.93mmHg / 6.02mmHg. Mild mitral annular calcification present. Mild mitral regurgitation is present. Mild tricuspid regurgitation present. There is no evidence of pulmonary hypertension. The right v entricular systolic pressure, as measured by Doppler, is 31.17mmHg. There is no pulmonic regurgitation present. The aortic root size is normal. There is no pericardial effusion. CONCLUSIONS -------- 1. The left ventricular size is normal. 2. There is mild concentric left ventricular hypertrophy. 3. Basal inferior LV wall motion is hypokinetic. 4. The right ventricle is normal in size. 5. The left atrial size is normal. 6. The right atrial size is normal. 7. Aortic valve is trileaflet and is moderately thickened. 8. Peak/mean gradient across the Aortic Valve is 10.93mmHg / 6.02mmHg. 9. Mild mitral annular calcification present. 10. Mild mitral regurgitation is present. 11. Mild tricuspid regurgitation present. 12. There is no evidence of pulmonary hypertension. 13. The right ventricular systolic pressure, as measured by Doppler, is 31.17mmHg. 14. There is no pulmonic regurgitation present. 15. The aortic root size is normal. 16. There is no pericardial effusion. METER AND SERVICE LINE INSPECTOR: Pam Ryder RDCS
[2018-11-29] MEDS ORDERED: LOSARTAN 50 MG TAB PO SCH (16:00)
[2018-11-29 17:27] VITALS: BP 134/66; PULSE 52; TEMP 98.1
== END 2018-11-29 16:00 ==
LOC: EC 15:53 → 1SOBS 19:08
PROVIDERS: ADMIT Hospitalist; ATTEND Hospitalist
DX: R07.89 Other chest pain (principal); R41.82 Altered mental status, unspecified; R00.1 Bradycardia, unspecified; R41.3 Other amnesia; F03.90 Unspecified dementia, unspecified severity, without behavioral disturbance, psychotic disturbance, mood disturbance, and anxiety; M19.90 Unspecified osteoarthritis, unspecified site; H40.9 Unspecified glaucoma; E78.5 Hyperlipidemia, unspecified; I48.0 Paroxysmal atrial fibrillation; N17.9 Acute kidney failure, unspecified; I10 Essential (primary) hypertension; K21.9 Gastro-esophageal reflux disease without esophagitis; Z90.49 Acquired absence of other specified parts of digestive tract; Z87.891 Personal history of nicotine dependence; Z79.899 Other long term (current) drug therapy; Z88.0 Allergy status to penicillin; Z86.73 Personal history of transient ischemic attack (TIA), and cerebral infarction without residual deficits
CPT/HCPCS: 99285; 36415; 93005; 93306; 80061; 80053; 83735; 84484 ×2; 85025; 85610; 85730; 81001; 71046; 70450; G0378 ×2

== ENCOUNTER 2019-01-12 07:20 | Inpatient (IN) | payer MEDICARE, BC ==
[2019-01-12] MEDS ORDERED: KETOROLAC 60 MG/2 ML VIAL IM STA (07:38)
--- NOTE | 2019-01-12 07:42 | ED ---
General Adult HPI - General Chief complaint: Extremity Injury, Lower Stated complaint: fall, left hip pain Time Seen by Provider: 01/12/19 07:20 Source: patient, EMS, RN notes reviewed Mode of arrival: EMS Limitations: altered mental status - History of Present Illness Initial comments: This is an 88-year-old male who presents to the emergency department demented at his baseline currently. Patient complains staff at the [facility] that his left hip hurt. Patient states that he fell but it's unclear if he actually fell no one saw him fall no one saw him on the ground. Patient is still confused his history is very inaccurate according to staff. Patient has no contusions or abrasions or any other signs of trauma. Patient is able to move all 4 extremi ties. - Related Data Home Medications Medication Instructions Recorded Confirmed Brimonidine Tartrate [Alphagan P 1 drops BOTH EYES 09/01/16 01/12/19 0.2% Ophth Soln] TID@0600,1400,2200 Pravastatin Sodium [Pravachol] 20 mg PO DAILY 09/01/16 01/12/19 Tamsulosin [Flomax] 0.4 mg PO DAILY@0800 09/01/16 01/12/19 Acetaminophen Tab [Tylenol] 650 mg PO Q4H PRN 10/22/18 01/12/19 Docusate [Colace] 100 mg PO BID@0800,199910/22/18 01/12/19 Losartan Potassium 100 mg PO DAILY@1600 10/22/18 01/12/19 Timolol 0.5% Ophth Soln (Pf) 1 drops BOTH EYES HS@199910/22/18 01/12/19 [Timoptic 0.5% Ocudose] levETIRAcetam [Keppra] 500 mg PO BID@0800,199910/22/18 01/12/19 ALPRAZolam [Xanax] 0.25 mg PO Q6H PRN 01/12/19 01/12/19 Cyanocobalamin (Vitamin B-12) 1,000 mcg PO DAILY 01/12/19 01/12/19 [Vitamin B-12] Eucalyptus Oil/Menthol/Camphor 1 applic TOPICAL HS 01/12/19 01/12/19 [Vicks Vaporub Ointment] NIFEdipine [NIFEdipine ER] 90 mg PO DAILY 01/12/19 01/12/19 traZODone HCL 50 mg PO HS 01/12/19 01/12/19 Previous Rx's Medication Instructions Recorded Labetalol [Trandate] 50 mg PO BID@0600,1800 #0 11/29/18 hydrALAZINE HCL [Apresoline] 100 mg PO TID #90 tab 11/29/18 Allergies Allergy/AdvReac Type Severity Reaction Status Date / Time Penicillins Allergy Unknown Verified 01/12/19 07:45 Review of Systems ROS Statement: Those systems with pertinent positive or pertinent negative responses have been documented in the HPI. ROS Other: All systems not noted in ROS Statement are negative. Past Medical History Past Medical History: Cancer, CVA/TIA, Dementia, Eye Disorder, GERD/Reflux, Memory Impairment, Osteoarthritis (OA), Prostate Disorder Additional Past Medical History / Comment(s): see Dr Chan H & P, glaucoma, subdural bleed acute on chronic x2 ([facility]). History of Any Multi-Drug Resistant Organisms: None Reported Past Surgical History: Cholecystectomy, Joint Replacement Additional Past Surgical History / Comment(s): cataract surg., left hip replaced Past Anesthesia/Blood Transfusion Reactions: No Reported Reaction Past Psychological History: No Psychological Hx Reported Smoking Status: Former smoker Past Alcohol Use History: None Reported Past Drug Use History: None Reported - Past Family History Mother Family Medical History: No Reported History Father Family Medical History: No Reported History General Exam - General Exam Comments Initial Comments: GENERAL Patient is well-developed and well-nourished. Patient is in mild distress. EYES Patient's pupils are equal and round. Extraocular motion is intact SKIN Unremarkable NEURO The patient is alert and oriented 3 PYSCH Patient has normal interpersonal interactions. MUSCULOSKELETAL Patient was all 4 extremities however when you externally rotate the left hip he does complain of lateral hip pain. Limitations: altered mental status Course Vital Signs 01/12/19 01/12/19 07:23 09:15 Temperature 98.4 F Pulse Rate 85 85 Respiratory 18 18 Rate Blood Pressure 185/91 185/91 O2 Sat by Pulse 95 97 Oximetry Medical Decision Making - Medical Decision Making Pelvis x-ray shows no acute abnormality. I tried to ambulate the patient and he is having difficulty so I CAT scan does hip. CAT scan of the hip showed no acute abnormality. There was some indication he might of hit his head so CT of his brain was done and showed no acute abnormality. Patient had a high white count so urine blood culture and chest x-ray done the chest x-ray indicates possible pneumonia. I gave the patient Rocephin. I spoke with Dr. Gann he agreed to admit the patient admitted patient continued Rocephin on the floor. EKG showed normal sinus rhythm at 94 bpm SD interval 172 QRS is 152 QT interval is 416 QTC is 520. Patient's EKG shows right bundle kelsy block. - Lab Data Result diagrams: 01/12/19 08:00 01/12/19 08:00 Lab Results 01/12/19 01/12/19 01/12/19 Range/Units 08:00 08:00 08:00 WBC 17.0 H (3.8-10.6) k/uL RBC 4.14 L (4.30-5.90) m/uL Hgb 12.4 L (13.0-17.5) gm/dL Hct 37.5 L (39.0-53.0) % MCV 90.5 (80.0-100.0) fL MCH 29.9 (25.0-35.0) pg MCHC 33.1 (31.0-37.0) g/dL RDW 13.0 (11.5-15.5) % Plt Count 165 (150-450) k/uL Neutrophils % 91 % Lymphocytes % 4 % Monocytes % 4 % Eosinophils % 1 % Basophils % 0 % Neutrophils # 15.4 H (1.3-7.7) k/uL Lymphocytes # 0.7 L (1.0-4.8) k/uL Monocytes # 0.6 (0-1.0) k/uL Eosinophils # 0.1 (0-0.7) k/uL Basophils # 0.0 (0-0.2) k/uL PT (9.0-12.0) sec INR (<1.2) APTT (22.0-30.0) sec Sodium 139 (137-145) mmol/L Potassium 3.9 (3.5-5.1) mmol/L Chloride 105 (98-107) mmol/L Carbon Dioxide 27 (22-30) mmol/L Anion Gap 7 mmol/L BUN 23 H (9-20) mg/dL Creatinine 0.99 (0.66-1.25) mg/dL Est GFR (CKD-EPI)AfAm 79 (>60 ml/min/1.73 sqM) Est GFR (CKD-EPI)NonAf 68 (>60 ml/min/1.73 sqM) Glucose 112 H (74-99) mg/dL Calcium 9.6 (8.4-10.2) mg/dL Total Bilirubin 0.8 (0.2-1.3) mg/dL AST 21 (17-59) U/L ALT 29 (21-72) U/L Alkaline Phosphatase 73 (38-126) U/L Troponin I (0.000-0.034) ng/mL Total Protein 7.2 (6.3-8.2) g/dL Albumin 4.2 (3.5-5.0) g/dL Urine Color Light Yellow Urine Appearance Clear (Clear) Urine pH 7.5 (5.0-8.0) Ur Specific [place] 1.010 (1.001-1.035) Urine Protein Trace H (Negative) Urine Glucose (UA) Negative (Negative) Urine Ketones Negative (Negative) Urine Blood Negative (Negative) Urine Nitrite Negative (Negative) Urine Bilirubin Negative (Negative) Urine Urobilinogen <2.0 (<2.0) mg/dL Ur Leukocyte Esterase Negative (Negative) Urine Opiates Screen Not Detected (NotDetected) Ur Oxycodone Screen Not Detected (NotDetected) Urine Methadone Screen Not Detected (NotDetected) Ur Propoxyphene Screen Not Detected (NotDetected) Ur Barbiturates Screen Not Detected (NotDetected) U Tricyclic Antidepress Not Detected (NotDetected) Ur Phencyclidine Scrn Not Detected (NotDetected) Ur Amphetamines Screen Not Detected (NotDetected) U Methamphetamines Scrn Not Detected (NotDetected) U Benzodiazepines Scrn Not Detected (NotDetected) Urine Cocaine Screen Not Detected (NotDetected) U Marijuana (THC) Screen Not Detected (NotDetected) 01/12/19 01/12/19 Range/Units 08:00 08:00 WBC (3.8-10.6) k/uL RBC (4.30-5.90) m/uL Hgb (13.0-17.5) gm/dL Hct (39.0-53.0) % MCV (80.0-100.0) fL MCH (25.0-35.0) pg MCHC (31.0-37.0) g/dL RDW (11.5-15.5) % Plt Count (150-450) k/uL Neutrophils % % Lymphocytes % % Monocytes % % Eosinophils % % Basophils % % Neutrophils # (1.3-7.7) k/uL Lymphocytes # (1.0-4.8) k/uL Monocytes # (0-1.0) k/uL Eosinophils # (0-0.7) k/uL Basophils # (0-0.2) k/uL PT 10.6 (9.0-12.0) sec INR 1.0 (<1.2) APTT 25.5 (22.0-30.0) sec Sodium (137-145) mmol/L Potassium (3.5-5.1) mmol/L Chloride (98-107) mmol/L Carbon Dioxide (22-30) mmol/L Anion Gap mmol/L BUN (9-20) mg/dL Creatinine (0.66-1.25) mg/dL Est GFR (CKD-EPI)AfAm (>60 ml/min/1.73 sqM) Est GFR (CKD-EPI)NonAf (>60 ml/min/1.73 sqM) Glucose (74-99) mg/dL Calcium (8.4-10.2) mg/dL Total Bilirubin (0.2-1.3) mg/dL AST (17-59) U/L ALT (21-72) U/L Alkaline Phosphatase (38-126) U/L Troponin I <0.012 (0.000-0.034) ng/mL Total Protein (6.3-8.2) g/dL Albumin (3.5-5.0) g/dL Urine Color Urine Appearance (Clear) Urine pH (5.0-8.0) Ur Specific [place] (1.001-1.035) Urine Protein (Negative) Urine Glucose (UA) (Negative) Urine Ketones (Negative) Urine Blood (Negative) Urine Nitrite (Negative) Urine Bilirubin (Negative) Urine Urobilinogen (<2.0) mg/dL Ur Leukocyte Esterase (Negative) Urine Opiates Screen (NotDetected) Ur Oxycodone Screen (NotDetected) Urine Methadone Screen (NotDetected) Ur Propoxyphene Screen (NotDetected) Ur Barbiturates Screen (NotDetected) U Tricyclic Antidepress (NotDetected) Ur Phencyclidine Scrn (NotDetected) Ur Amphetamines Screen (NotDetected) U Methamphetamines Scrn (NotDetected) U Benzodiazepines Scrn (NotDetected) Urine Cocaine Screen (NotDetected) U Marijuana (THC) Screen (NotDetected) Disposition Clinical Impression: Pneumonia, Leukocytosis, Fracture of multiple pubic rami Disposition: ADMITTED IP TO THIS [facility] Time of Disposition: 09:14
[2019-01-12] MEDS ORDERED: SODIUM CHLORIDE 0.9% 500 ML 500 ML IV ONE (07:47)
--- NOTE | 2019-01-12 08:10 | XR ---
EXAMINATION TYPE: XR Hip LT and AP Pelvis , 3 VIEWS DATE OF EXAM ORDERED: 01/12/2019 HISTORY: Pain. COMPARISON: None. FINDINGS: Left hip hemiarthroplasty is in place. Prosthetic elements appear in good position no frac ture or dislocation is seen. There is some heterotopic new bone adjacent to the greater trochanter on the left. There are degenerative changes in the right hip as well as the lumbar spine. IMPRESSION: 1. NO ACUTE OSSEOUS LESION. 2. STATUS POST LEFT HIP HEMIARTHROPLASTY.
[2019-01-12 08:23] LABS: Basophils % (A) 0 %; Eosinophils # (A) 0.1 k/uL (0-0.7); Eosinophils % (A) 1 %; HCT 37.5 % (39.0-53.0); HGB 12.4 gm/dL (13.0-17.5); Lymphocytes # (A) 0.7 k/uL (1.0-4.8); Lymphocytes % (A) 4 %; MCH 29.9 pg (25.0-35.0); MCHC 33.1 g/dL (31.0-37.0); MCV 90.5 fL (80.0-100.0); Monocytes # (A) 0.6 k/uL (0-1.0); Monocytes % (A) 4 %; Neutrophils # (A) 15.4 k/uL (1.3-7.7); Neutrophils % (A) 91 %; Platelet Count 165 k/uL (150-450); RBC 4.14 m/uL (4.30-5.90)
[2019-01-12 08:32] LABS: Appearance,Urine Clear (Clear); Bilirubin,Urine Negative (Negative); Blood,Urine Negative (Negative); Color,Urine Light Yellow; Glucose,Urine (UA) Negative (Negative); Ketones,Urine Negative (Negative); Leukocyte Esterase,Urine Negative (Negative); Nitrite,Urine Negative (Negative); PH, Urine 7.5 (5.0-8.0); Protein,Urine Trace (Negative); Urobilinogen,Urine <2.0 mg/dL (<2.0)
[2019-01-12 08:35] LABS: Albumin 4.2 g/dL (3.5-5.0); Calcium 9.6 mg/dL (8.4-10.2); Potassium 3.9 mmol/L (3.5-5.1); Total Bilirubin 0.8 mg/dL (0.2-1.3); Total Protein 7.2 g/dL (6.3-8.2)
[2019-01-12 08:41] LABS: Partial Thromboplastin Time 25.5 sec (22.0-30.0); Prothrombin Time 10.6 sec (9.0-12.0)
--- NOTE | 2019-01-12 08:45 | CT ---
EXAMINATION TYPE: CT brain wo con DATE OF EXAM: 01/12/2019 COMPARISON: Previous study dated 11/28/2018. HISTORY: Fall, struck forehead CT DLP: 1078.4 mGycm Automated exposure control for dose reduction was used. FINDINGS: There are generalized changes of sulcal prominence and ventriculomegaly, compatible with atrophic vita nge. There is diffuse periventricular white matter lucency, compatible small vessel ischemic change. There is no acute focal lesion, mass effect or midline shift identified. I do not see evidence of int racranial blood. There is calcification and dolichoectasia of the vertebrobasilar system. Visualized portions of the paranasal sinuses and mastoids are clear. There is a left frontal marce hol e in place. IMPRESSION: 1. NO ACUTE INTRACRANIAL ABNORMALITY. 2. ATROPHIC CHANGE. 3. CHRONIC WHITE MATTER ISCHEMIC CHANGE.
--- NOTE | 2019-01-12 08:50 | XR ---
EXAMINATION TYPE: XR chest 2V DATE OF EXAM: 01/12/2019 HISTORY: altered mental status. REFERENCE: Previous study dated 11/28/2018. FINDINGS: Heart size upper limits of normal. There is a vague opacity in the right midlung. Lungs oth erwise clear. Pleural spaces are clear. There is unfolding of the thoracic aorta. IMPRESSION: 1. BORDERLINE CARDIOMEGALY. 2. THERE ARE OPACITY IN THE RIGHT MIDLUNG MAY REPRESENT DEVELOPING PNEUMONIA.
[2019-01-12 08:56] LABS: Amphetamine Screen,Urine Not Detected (NotDetected); Barbiturate Screen,Urine Not Detected (NotDetected); Benzodiazepines Screen,Urine Not Detected (NotDetected); Cocaine Screen,Urine Not Detected (NotDetected); Methadone Screen, Urine Not Detected (NotDetected); Opiate Screen,Urine Not Detected (NotDetected); Oxycodone Screen, Urine Not Detected (NotDetected); Phencyclidine Screen,Urine Not Detected (NotDetected); Tricyclic Antidepressant,Urine Not Detected (NotDetected); Urn Cannabinoid Scrn Not Detected (NotDetected)
[2019-01-12] MEDS ORDERED: AZITHROMYCIN 500 MG in SODIUM CHLORIDE 0.9% 250 ML IVPB STA (09:14)
[2019-01-12] MEDS ORDERED: PNEUMONIA PROTOCOL UTILIZED 1 EACH MISC PO PRN (09:14)
--- NOTE | 2019-01-12 09:35 | CT ---
EXAMINATION TYPE: CT hip LT wo con DATE OF EXAM: 01/12/2019 COMPARISON: None. HISTORY: Lt hip pain, fall CT DLP: 433.8 mGycm Automated exposure control for dose reduction was used. FINDINGS: There is a left hip arthroplasty in place. This is causing considerable streak artifact thr ough the region. There are some atheromatous calcification of the visualized arterial tree. Soft tissues are otherwise unremarkable. No definite hematoma is identified. There is a comminuted undisplaced fracture of the inferior pubic ramus on the left. I am suspicious that there is also an undisplaced fracture of the s uperior pubic ramus. IMPRESSION: MINIMALLY DISPLACED FRACTURES OF BOTH THE SUPERIOR AND INFERIOR PUBIC RAMUS ON THE LEFT. CODE A: INITIAL ENCOUNTER FOR CLOSED FRACTURE.
[2019-01-12] MEDS: hydrALAZINE HCL 50 MG TAB PO SCH ×3 (11:08→20:44)
[2019-01-12] MEDS: NIFEdipine XL 90 MG TAB.ER.24 PO SCH (11:08)
[2019-01-12] MEDS: LABETALOL 100 MG TAB PO SCH ×2 (11:08→17:02)
[2019-01-12] MEDS: PRAVASTATIN SODIUM 20 MG TAB PO SCH (11:08)
[2019-01-12] MEDS: levETIRAcetam 500 MG TAB PO SCH ×2 (11:09→20:40)
[2019-01-12] MEDS: TAMSULOSIN 0.4 MG CAP.ER.24H PO SCH (11:09)
[2019-01-12 11:52] VITALS: BMI 25.0
[2019-01-12] MEDS: BRIMONIDINE TARTRATE 0.2% DROPS 5 ML BTL BOTH EYES SCH ×2 (13:45→20:42)
[2019-01-12] MEDS: ACETAMINOPHEN TAB 325 MG TAB PO PRN ×2 (16:12→20:41)
[2019-01-12] MEDS: LOSARTAN 50 MG TAB PO SCH (16:16)
--- NOTE | 2019-01-12 20:09 | HP ---
HISTORY AND PHYSICAL DATE OF ADMISSION: 01/12/2019 DATE OF SERVICE: 01/12/2019 PRESENTING COMPLAINT: Fall. HISTORY OF PRESENTING COMPLAINT: This is an 88-year-old patient of the Visiting Physician, Dr. Beltre, who lives at [facility]. History is obtained by the at the bedside. Chronic stable medical conditions include dementia, GERD, osteoarthritis, prostate disorder, subdural bleed x2. At baseline patient is able to recognize family, can feed himself occasionally and the patient is incontinent of urine. The patient is rather forgetful and often times will shut off the bed alarm. The patient took a fall, complaining of pain in the pelvic area in the left hip. X-rays done in the ER found the patient to have a pubic rami fracture. Orthopedics was consulted. Pain is localized to the hip. The does state that when patient took a fall, patient was able to crawl back into bed but then having trouble standing after that. The patient is able to answer some simple questions. REVIEW OF SYSTEMS: CONSTITUTIONAL: None. HEENT: Decreased hearing. RESPIRATORY: None. CARDIOVASCULAR: None. GASTROINTESTINAL: Heartburn. GENITOURINARY: Urine incontinence. MUSCULOSKELETAL: Arthritis in many joints in the pelvic area. DERMATOLOGICAL, HEMATOLOGIC, LYMPHATIC: None. PSYCHIATRY: Forgetful. NEUROLOGICAL: Unsteady in his gait. PAST MEDICAL HISTORY: Dementia, eye disorder, GERD, memory impairment, osteoarthritis, Parkinson's disorder, subdural acute bleed on chronic. PAST SURGICAL HISTORY: Cholecystectomy, joint replacement, left hip replaced, cataract surgery. SOCIAL HISTORY: The patient smoked for about 10-15 years, stopped in the 70s. Alcohol none. . Does use a walker at baseline. Lives at [facility]. FAMILY HISTORY: Reviewed, not pertinent to presentation. HOME MEDICATIONS: 1. Vicks vapor rub ointment topical q.h.s. 2. Xanax 0.25 q.6h p.r.n. 3. Pravachol 20 mg p.o. daily. 4. Losartan 100 mg p.o. daily. 5. Vitamin B12 1000 mcg p.o. daily. 6. Tylenol 650 mg q.4 p.r.n. 7. Hydralazine 100 mg t.i.d. 8. Timoptic 0.5% 1 drop to both eyes q.h.s. 9. Labetalol 50 mg p.o. b.i.d. 10.Alphagan 0.2% 1 drop to both eyes t.i.d. 11.Trazodone 50 mg at bedtime. 12.Keppra 500 mg b.i.d. 13.Colace 100 mg b.i.d. 14.Flomax 0.4 mg p.o. daily. 15.Nifedipine ER 90 mg p.o. daily. ALLERGIES: PENICILLIN. PHYSICAL EXAMINATION: VITAL SIGNS: Temperature 97.7, pulse 78, respirations 18, blood pressure 186/86, repeat was 135/64, pulse ox 94 percent on room air. GENERAL APPEARANCE: Average built, sitting up, awake. EYES: Pupils equal. Conjunctivae normal. HENT: External appearance of nose and ears is normal. Oral cavity normal. NECK: JVD not raised. Mass not palpable. Respiratory effort normal. LUNGS: Slightly decreased breath sounds. CARDIOVASCULAR: First and second sounds normal. No edema. ABDOMEN: Soft, nontender. Liver and spleen not palpable. LYMPHATICS: No lymph node palpable in neck or axilla. PSYCHIATRY: Patient knows that he is in the hospital, knows the month and the year though slow to answer questions. NEUROLOGICAL: Pupils equal. No facial asymmetry. Power and sensation grossly intact. MUSCULOSKELETAL: Evidence of osteoarthritis especially in the hands. Limited range of motion in the hip. INVESTIGATIONS: White count 17, hemoglobin 12.4 potassium 3.9, BUN 23, creatinine 0.99. UA negative. Urine drug screen negative. EKG tracing personally reviewed by me shows right bundle branch block. Hip CT scan shows minimally displaced fractures of both the superior and inferior pubic rami on the left. CT scan of the brain atrophic changes. Chest x-ray film personally reviewed by me shows borderline cardiomegaly, some unfolding of the aorta, looks like some chronic interstitial lung changes. ASSESSMENT: 1. Left-sided inferior and superior pubic rami fracture secondary to fall. 2. Possible pneumonia. The patient is a poor historian with no obvious respiratory symptoms with elevated white count and infiltrate reported on the chest x-ray. 3. Moderate cognitive impairment due to history of subdural hematoma, Alzheimer's dementia entirely possible underlying. 4. Essential hypertension. 5. Primary osteoarthritis. 6. Chronic gait dysfunction, uses a walker. 7. Chronic urine incontinence. 8. Hyperlipidemia. 9. Benign prostatic hypertrophy for which patient is on Flomax. PLAN: Patient started on ceftriaxone in the ER. The patient is on bedrest, often gets confused. Will be closely followed up with fall precautions. Orthopedics will be consulted for their opinion. Patient does not appear to be any surgical candidate for the surgery. This was discussed at length with the patient's family at the bedside. We will await further input from Orthopedics. Lovenox for DVT prophylaxis. MMODL / IJN: [id number] /
[2019-01-12] MEDS: traZODone HCL 50 MG TAB PO SCH (20:40)
[2019-01-12] MEDS: DOCUSATE 100 MG CAP PO SCH (20:40)
[2019-01-12] MEDS: TIMOLOL 0.5% OPHTH DROPS 5 ML BTL BOTH EYES SCH (21:11)
[2019-01-12] MEDS: KETOROLAC 30 MG/ML 1 ML VIAL IVP PRN (23:52)
[2019-01-13] MEDS: ALPRAZolam 0.25 MG TAB PO PRN (01:14)
[2019-01-13] MEDS: BRIMONIDINE TARTRATE 0.2% DROPS 5 ML BTL BOTH EYES SCH ×3 (05:45→21:34)
[2019-01-13] MEDS: LABETALOL 100 MG TAB PO SCH ×2 (05:46→17:54)
--- NOTE | 2019-01-13 07:31 | XR ---
EXAMINATION TYPE: XR chest 1V portable DATE OF EXAM: 01/13/2019 HISTORY: Pneumonia. REFERENCE: Previous study dated 01/12/2019. FINDINGS: The heart is mildly enlarged. The lungs are clear. Pleural spaces are clear. IMPRESSION: MILD CARDIOMEGALY.
[2019-01-13] MEDS: hydrALAZINE HCL 50 MG TAB PO SCH ×4 (08:03→20:57)
[2019-01-13] MEDS: levETIRAcetam 500 MG TAB PO SCH ×2 (08:03→20:55)
[2019-01-13] MEDS: TAMSULOSIN 0.4 MG CAP.ER.24H PO SCH (08:03)
[2019-01-13] MEDS: ENOXAPARIN 40 MG/0.4 ML SYRINGE SQ SCH (08:03)
[2019-01-13] MEDS: CYANOCOBALAMIN 500 MCG TAB PO SCH (08:04)
[2019-01-13] MEDS: KETOROLAC 30 MG/ML 1 ML VIAL IVP PRN ×2 (08:04→17:00)
[2019-01-13] MEDS: AZITHROMYCIN 500 MG TAB PO SCH (08:04)
[2019-01-13] MEDS: DOCUSATE 100 MG CAP PO SCH ×2 (08:05→20:55)
[2019-01-13] MEDS: PRAVASTATIN SODIUM 20 MG TAB PO SCH (08:06)
[2019-01-13] MEDS: NIFEdipine XL 90 MG TAB.ER.24 PO SCH (08:06)
--- NOTE | 2019-01-13 11:02 | P.CNOR ---
History of Present Illness - [facility] Consult date: 01/13/19 Consult reason: fracture (Pubic rami fractures left) History of present illness: This is an 88-year-old gentleman who resides in assisted living and had an on witnessed fall. He does have history of dementia and is a poor historian. He had difficulty ambulating and was brought for exam and x-rays the emergency department. Computed tomography scan of the left hip and pelvis reveals a nondisplaced superior/inferior. Clearly fractures on the left. Hip arthroplasty components in good position and alignment. No other fractures identified. He is admitted to internal medicine and we're consulted for orthop edic evaluation. Past Medical History Past Medical History: Cancer, CVA/TIA, Dementia, Eye Disorder, GERD/Reflux, Memory Impairment, Osteoarthritis (OA), Prostate Disorder Additional Past Medical History / Comment(s): see Dr Chan H & P, glaucoma, subdural bleed acute on chronic x2 ([facility]). History of Any Multi-Drug Resistant Organisms: None Reported Past Surgical History: Cholecystectomy, Joint Replacement Additional Past Surgical History / Comment(s): cataract surg., left hip replaced Past Anesthesia/Blood Transfusion Reactions: No Reported Reaction Past Psychological History: No Psychological Hx Reported Smoking Status: Former smoker Past Alcohol Use History: None Reported Additional Past Alcohol Use History / Comment(s): quit smoking in the 70's, smoked for 10-15 yrs. Past Drug Use History: None Reported - Past Family History Mother Family Medical History: No Reported History Father Family Medical History: No Reported History Medications and Allergies Home Medications Medication Instructions Recorded Confirmed Type Brimonidine Tartrate [Alphagan P 1 drops BOTH EYES 09/01/16 01/12/19 History 0.2% Ophth Soln] TID@0600,1400,2200 Pravastatin Sodium [Pravachol] 20 mg PO DAILY 09/01/16 01/12/19 History Tamsulosin [Flomax] 0.4 mg PO DAILY@0800 09/01/16 01/12/19 History Acetaminophen Tab [Tylenol] 650 mg PO Q4H PRN 10/22/18 01/12/19 History Docusate [Colace] 100 mg PO BID@0800,2000 10/22/18 01/12/19 History Losartan Potassium 100 mg PO DAILY@1600 10/22/18 01/12/19 History Timolol 0.5% Ophth Soln (Pf) 1 drops BOTH EYES HS@199910/22/18 01/12/19 History [Timoptic 0.5% Ocudose] levETIRAcetam [Keppra] 500 mg PO BID@0800,199910/22/18 01/12/19 History Labetalol [Trandate] 50 mg PO BID@0600,1800 #0 11/29/18 01/12/19 Rx hydrALAZINE HCL [Apresoline] 100 mg PO TID #90 tab 11/29/18 01/12/19 Rx ALPRAZolam [Xanax] 0.25 mg PO Q6H PRN 01/12/19 01/12/19 History Cyanocobalamin (Vitamin B-12) 1,000 mcg PO DAILY 01/12/19 01/12/19 History [Vitamin B-12] Eucalyptus Oil/Menthol/Camphor 1 applic TOPICAL HS 01/12/19 01/12/19 History [Vicks Vaporub Ointment] NIFEdipine [NIFEdipine ER] 90 mg PO DAILY 01/12/19 01/12/19 History traZODone HCL 50 mg PO HS 01/12/19 01/12/19 History Allergies Allergy/AdvReac Type Severity Reaction Status Date / Time Penicillins Allergy Unknown Verified 01/12/19 07:45 Physical Examination This is a pleasant 88-year-old male in no acute distress. He is alert with some confusion. Exam of the head neck reveal no obvious deformity. He has full cervical spine motion without difficulty or pain. There is no pain with palpation about cervical spine or paraspinal musculature. Exam the upper extremities unremarkable. He has fairly good shoulder, elbow, wrist and finger motion bilaterally. Neurovascular status to the upper extremities is intact. Exam of the lower extremities reveals no obvious deformity. There is pain with logroll to left hip. He is able to lift each leg off the bed independently with some pain on the left. He has full foot and ankle motion without difficulty or pain. Neurovascular status to the lower extremities is intact. Results CT of the pelvis reveals a nondisplaced superior/inferior pubic rami fractures on the left. Hip implants in good position and alignment. - Labs Labs: H & H 01/12/19 Range/Units 08:00 Hgb 12.4 L (13.0-17.5) gm/dL Hct 37.5 L (39.0-53.0) % Coagulation 01/12/19 Range/Units 08:00 INR 1.0 (<1.2) Result Diagrams: 01/12/19 08:00 01/12/19 08:00 Assessment and Plan (1) History of hemiarthroplasty of left hip Current Visit: Yes Status: Acute Code(s): Z96.642 - PRESENCE OF LEFT ART IFICIAL HIP JOINT SNOMED Code(s): 864268863 (2) Fracture of multiple pubic rami Current Visit: Yes Status: Acute Code(s): S32.599A - OTH FRACTURE OF UNSP PUBIS, INIT ENCNTR FOR CLOSED FRACTURE SNOMED Code(s): 718250334 (3) Leukocytosis Current Visit: Yes Status: Acute Code(s): D72.829 - ELEVATED WHITE BLOOD CELL COUNT, UNSPECIFIED SNOMED Code(s): 995091267 Plan: The clinical and x-ray findings are discussed with the patient. There is a sitter present at bedside. We will get him up with physical therapy, toe-touch weightbearing to the left lower extremity with walker. He may require inpatient rehab after discharge.
[2019-01-13] MEDS: LOSARTAN 50 MG TAB PO SCH (16:53)
[2019-01-13] MEDS: TIMOLOL 0.5% OPHTH DROPS 5 ML BTL BOTH EYES SCH (20:55)
[2019-01-13] MEDS: traZODone HCL 50 MG TAB PO SCH (20:56)
--- NOTE | 2019-01-13 23:40 | PN ---
PROGRESS NOTE DATE OF SERVICE: 01/13/2019. PRESENTING COMPLAINT: Fall. INTERVAL HISTORY: The patient presented with pubic rami fracture and also pneumonia. Doing well, tolerating a diet, resting. Family at the bedside. REVIEW OF SYSTEMS: Done for constitutional, vascular, GI, pulmonary; relevant findings as above. CURRENT MEDICATIONS: Reviewed that include IV ceftriaxone. PHYSICAL EXAMINATION: Temperature 97.9, pulse 63, respiratory rate 18, blood pressure 109/67, pulse ox 95% on room air. GENERAL APPEARANCE: Lying in bed, awake. EYES: Pupils equal. Conjunctivae normal. NECK: JVD not raised. Mass not palpable. Respiratory effort normal. LUNGS: Slightly decreased breath sounds. CARDIOVASCULAR: 1st and 2nd heart sounds. No edema. ABDOMEN: Soft, nontender. Liver and spleen not palpable. PSYCHIATRY: Patient is able to answer simple questions. INVESTIGATIONS: No blood work from today. ASSESSMENT: 1. Left-sided inferior and superior pubic rami fractures secondary to fall. 2. Pneumonia. 3. Moderate cognitive impairment due to history of subdural hematoma, Alzheimer's dementia also highly possible. 4. Essential hypertension. 5. Primary osteoarthritis. 6. Chronic gait dysfunction. Uses a walker. 7. Chronic urine incontinence. 8. Hyperlipidemia. 9. Benign prostatic hypertrophy. PLAN: The patient should be able to switch to oral antibiotics in the next 24 hours. Otherwise, patient is ready to go to inpatient rehab. network contract manager and social service manager being consulted with the same. Care was discussed with the family at the bedside. PT and OT also following. MMODL / IJN: [id number] /
[2019-01-14] MEDS: KETOROLAC 30 MG/ML 1 ML VIAL IVP PRN ×2 (02:09→12:49)
[2019-01-14] MEDS: BRIMONIDINE TARTRATE 0.2% DROPS 5 ML BTL BOTH EYES SCH ×3 (05:27→21:43)
[2019-01-14] MEDS: LABETALOL 100 MG TAB PO SCH ×2 (05:27→18:13)
[2019-01-14 08:06] LABS: Basophils # (A) 0.1 k/uL (0-0.2); Basophils % (A) 1 %; Eosinophils # (A) 0.4 k/uL (0-0.7); Eosinophils % (A) 4 %; HCT 34.5 % (39.0-53.0); HGB 11.5 gm/dL (13.0-17.5); Lymphocytes # (A) 0.7 k/uL (1.0-4.8); Lymphocytes % (A) 7 %; MCH 30.5 pg (25.0-35.0); MCHC 33.4 g/dL (31.0-37.0); MCV 91.3 fL (80.0-100.0); Mean Platelet Volume 7.1; Monocytes # (A) 0.4 k/uL (0-1.0); Monocytes % (A) 5 %; Neutrophils # (A) 7.2 k/uL (1.3-7.7); Neutrophils % (A) 81 %; Platelet Count 146 k/uL (150-450); RBC 3.77 m/uL (4.30-5.90); WBC 8.8 k/uL (3.8-10.6)
--- NOTE | 2019-01-14 08:58 | P.PN ---
Subjective Progress Note Date: 01/14/19 This is an 88-year-old male who sustained left nondisplaced superior and inferior pubic rami fractures after a fall. Patient states that his pain is better controlled today and he is able to transfer to a chair. Patient does complain of some back pain today, but attributes this to laying in bed for the last couple of days. Patient denies any new symptoms or complaints today. Objective - Vital Signs Vital signs: Vital Signs Temp 99.0 F 01/14/19 05:00 Pulse 80 01/14/19 05:00 Resp 16 01/14/19 05:00 BP 130/60 01/14/19 05:00 Pulse Ox 92 L 01/14/19 08:22 Intake & Output 01/13/19 01/14/19 01/14/19 18:59 06:59 18:59 Intake Total 1030 100 Output Total 590 300 Balance 440 -200 Intake: Intake, IV Titration 50 Amount cefTRIAXone 1 gm In 50 Sodium Chloride 0.9% 50 ml @ 100 mls/hr IVPB Q24HR [facility] Rx#:[id number] Oral 980 100 Output: Urine 590 300 Other: Voiding Method Urinal Urinal # Voids 3 - Exam On exam patient is sitting comfortably in a chair in no acute distress. There is some pain with limited range of motion of the left lower extremity. Calf is soft and nontender to palpation. There is no swelling of the left lower extremity. Sensation intact. Neurovascular status and circulatory status are intact. - Labs CBC & Chem 7: 01/14/19 07:07 01/14/19 07:07 Labs: Abnormal Lab Results - Last 24 Hours (Table) 01/14/19 01/14/19 Range/Units 07:07 07:07 RBC 3.77 L (4.30-5.90) m/uL Hgb 11.5 L (13.0-17.5) gm/dL Hct 34.5 L (39.0-53.0) % Plt Count 146 L (150-450) k/uL Lymphocytes # 0.7 L (1.0-4.8) k/uL Sodium 135 L (137-145) mmol/L BUN 29 H (9-20) mg/dL Microbiology - Last 24 Hours (Table) 01/12/19 09:25 Blood Culture - Preliminary Blood No Growth after 24 hours Assessment and Plan (1) Fracture of multiple pubic rami Current Visit: Yes Status: Acute Code(s): S32.599A - OTH FRACTURE OF UNSP PUBIS, INIT ENCNTR FOR CLOSED FRACTURE SNOMED Code(s): 278968614 (2) History of hemiarthroplasty of left hip Current Visit: Yes Status: Acute Code(s): Z96.642 - PRESENCE OF LEFT ARTIFICIAL HIP JOINT SNOMED Code(s): 184022868 Plan: #1.Toe-touch weight-bearing to the left lower extremity with walker. #2. Physical therapy for mobiilization. #3. Continue pain control. #4. Possible discharge to [facility] in the next 24-28 hours.
[2019-01-14] MEDS: TAMSULOSIN 0.4 MG CAP.ER.24H PO SCH (09:14)
[2019-01-14] MEDS: CYANOCOBALAMIN 500 MCG TAB PO SCH (09:14)
[2019-01-14] MEDS: levETIRAcetam 500 MG TAB PO SCH ×2 (09:14→19:38)
[2019-01-14] MEDS: DOCUSATE 100 MG CAP PO SCH ×2 (09:14→19:38)
[2019-01-14] MEDS: ENOXAPARIN 40 MG/0.4 ML SYRINGE SQ SCH (09:15)
[2019-01-14] MEDS: NIFEdipine XL 90 MG TAB.ER.24 PO SCH (09:21)
[2019-01-14] MEDS: AZITHROMYCIN 500 MG TAB PO SCH (09:21)
[2019-01-14] MEDS: hydrALAZINE HCL 50 MG TAB PO SCH ×3 (09:27→21:43)
[2019-01-14] MEDS: PRAVASTATIN SODIUM 20 MG TAB PO SCH (09:27)
[2019-01-14] MEDS: LOSARTAN 50 MG TAB PO SCH (16:56)
[2019-01-14] MEDS: ACETAMINOPHEN TAB 325 MG TAB PO PRN (18:37)
[2019-01-14] MEDS: TIMOLOL 0.5% OPHTH DROPS 5 ML BTL BOTH EYES SCH (19:39)
--- NOTE | 2019-01-14 20:24 | XR ---
EXAMINATION TYPE: XR shoulder complete LT DATE OF EXAM: 01/14/2019 COMPARISON: NONE HISTORY: Pain TECHNIQUE: 3 views FINDINGS: I see no fracture nor dislocation. Glenohumeral joint is intact. There are no pathologic ca lcifications at the greater tuberosity. IMPRESSION: Negative left shoulder exam.
--- NOTE | 2019-01-14 20:50 | PN ---
PROGRESS NOTE DATE OF SERVICE: 01/14/2019 PRESENTING COMPLAINT: Fall. INTERVAL HISTORY: This patient presented with a pubic rami fracture following a fall and also had pneumonia. He is looking much better today, sitting up on a chair. Did eat better. More communicative. Later he did walk with Physical Therapy; it looks like he did about 15 feet with a walker. Per case coordinator, patient will need at least one more night before he can go to the [facility]. REVIEW OF SYSTEMS: Done for constitutional, cardiovascular, GI, pulmonary, musculoskeletal; relevant findings as above. Pain is better controlled. CURRENT MEDICATIONS: Reviewed. They include IV ceftriaxone. PHYSICAL EXAMINATION: Temperature 98.3, pulse 74, respiration 18, blood pressure 164/77, pulse ox 95% on room air. GENERAL APPEARANCE: Sitting up on a chair, more awake, more talkative. EYES: Pupils equal. Conjunctivae normal. NECK: JVD not raised. Mass not palpable. RESPIRATORY: Effort increased. LUNGS: Decreased breath sounds. CARDIOVASCULAR: First and second sounds normal. No edema. ABDOMEN: Soft, non-tender. Liver and spleen not palpable. PSYCHIATRY: Able to answer simple questions. INVESTIGATIONS: White count 8.8, hemoglobin 11.5, potassium 4.0. ASSESSMENT: 1. Left-sided inferior and superior pubic rami fracture secondary to fall. 2. Pneumonia. 3. 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 4. Essential hypertension. 5. Primary osteoarthritis. 6. Chronic gait dysfunction. Uses a walker. 7. Chronic urine incontinence. 8. Hyperlipidemia. 9. Benign prostatic hypertrophy. PLAN: The patient will be going to the rehab tomorrow; looks like [facility]. I spoke to the patient's daughter, Eli, telephone . I had a long talk with the patient. Additional confusion is expected, given the new circumstances, pneumonia, trauma and the patient's daughter has a good understanding of the same. The patient had complained of left shoulder pain to her. We will therefore order a left shoulder x-ray and have Orthopedics follow up the same. Looking at discharge to the [facility] tomorrow if a bed is available. MMODL / IJN: [id number] /
[2019-01-14] MEDS: traZODone HCL 50 MG TAB PO SCH (21:43)
[2019-01-15] MEDS: KETOROLAC 30 MG/ML 1 ML VIAL IVP PRN ×2 (03:39→18:21)
[2019-01-15] MEDS: LABETALOL 100 MG TAB PO SCH ×2 (05:21→22:24)
[2019-01-15] MEDS: BRIMONIDINE TARTRATE 0.2% DROPS 5 ML BTL BOTH EYES SCH ×3 (05:21→22:25)
[2019-01-15 08:34] LABS: Calcium 9.1 mg/dL (8.4-10.2); Potassium 4.1 mmol/L (3.5-5.1)
[2019-01-15] MEDS: TAMSULOSIN 0.4 MG CAP.ER.24H PO SCH (08:34)
[2019-01-15] MEDS: CYANOCOBALAMIN 500 MCG TAB PO SCH (08:34)
[2019-01-15] MEDS: hydrALAZINE HCL 50 MG TAB PO SCH ×3 (08:34→22:24)
[2019-01-15] MEDS: levETIRAcetam 500 MG TAB PO SCH ×2 (08:34→22:25)
[2019-01-15] MEDS: ENOXAPARIN 40 MG/0.4 ML SYRINGE SQ SCH (08:35)
[2019-01-15] MEDS: AZITHROMYCIN 500 MG TAB PO SCH (08:35)
[2019-01-15] MEDS: DOCUSATE 100 MG CAP PO SCH ×2 (08:35→22:25)
[2019-01-15] MEDS: PRAVASTATIN SODIUM 20 MG TAB PO SCH (08:36)
[2019-01-15] MEDS: NIFEdipine XL 90 MG TAB.ER.24 PO SCH (08:36)
[2019-01-15] MEDS: ALPRAZolam 0.25 MG TAB PO PRN ×2 (11:29→22:25)
--- NOTE | 2019-01-15 14:59 | P.CNNES ---
History of Present Illness Consult date: 01/15/19 Reason for Consult: Rule out CVA Chief complaint: Fall, but left pelvic fracture History of Present Illness: Patient is a 88-year-old male who had suffered from "blood clot in the brain" about a year ago after which he has been admitted to a longterm. Patient has suffered from a few falls. Patient was brought to the ER on 01/12/2019 after he suffered from a fall at the longterm. Apparently patient has some arguments with somebody at the longterm, he tried to get up and started walking in the and fell on the left side producing pelvic fracture. Patient had a CT of the left hip, which revealed minimally displaced fracture of both the superior and inferior pubic ramus on the left. Orthopedic surgery has seen the patient, recommending inpatient rehab. Neurology was consulted to rule out stroke. Patient denies any slurred speech, facial droop, problem with the vision, any focal weakness except for left hip flexion due to pain, and left shoulder for which she has significant arthritis. Patient says that he does use a walker at the longterm. Patient denies any neck pain. I spoke to patient's daughter on the phone, who informed me that patient had been on anticoagulants in the past, suffered from intracranial bleed, probable subdural hematoma in the middle of August 2018, for which he underwent craniotomy. He had another craniotomy in October 2018. Both of these surgeries were performed at [facility]. Patient's daughter was concerned that patient is having some confusional episodes for last few weeks. Sometimes he is more lucid and other times more confused, almost paranoid. She is concerned about upcoming dementia. Patient had computed tomography scan of the head, which revealed no acute process. Atrophic changes. Chronic white matter ischemic change. Patient had a 2-D echo performed 11/29/2018, which revealed normal left ventricle size. Mild concentric LVH. Left atrial size is normal. Patient does not have diabetes. He was a light smoker, quit 35 years ago. He is to drink alcohol a 12 pack once a week (split between him and his friend). He does not consider himself an alcoholic in the past. He has not drank alcohol 30 years ago. Patient's cholesterol is 113, LDL 62, HDL 33 as of 11/29/2018. Liver functions normal. Urine drug screen negative. Urine drug screen negative. Review of Systems Constitutional: Denies weakness Musculoskeletal: left: hip pain, shoulder pain, shoulder stiffness Neurological: Reports memory loss, Denies loss of vision, Denies seizures, Denies tingling, Denies vertigo Past Medical History Past Medical History: Cancer, CVA/TIA, Dementia, Eye Disorder, GERD/Reflux, Memory Impairment, Osteoarthritis (OA), Prostate Disorder Additional Past Medical History / Comment(s): see Dr Chan [facility] & [facility], glaucoma, subdural bleed acute on chronic x2 ([facility]). History of Any Multi-Drug Resistant Organisms: None Reported Past Surgical History: Cholecystectomy, Joint Replacement Additional Past Surgical History / Comment(s): cataract surg., left hip replaced Past Anesthesia/Blood Transfusion Reactions: No Reported Reaction Past Psychological History: No Psychological Hx Reported Smoking Status: Former smoker Past Alcohol Use History: None Reported Additional Past Alcohol Use History / Comment(s): quit smoking in the 70's, smoked for 10-15 yrs. Past Drug Use History: None Reported - Past Family History Mother Family Medical History: No Reported History Father Family Medical History: No Reported History Medications and Allergies Home Medications Medication Instructions Recorded Confirmed Type Brimonidine Tartrate [Alphagan P 1 drops BOTH EYES 09/01/16 01/12/19 History 0.2% Ophth Soln] TID@0600,1400,2200 Pravastatin Sodium [Pravachol] 20 mg PO DAILY 09/01/16 01/12/19 History Tamsulosin [Flomax] 0.4 mg PO DAILY@0800 09/01/16 01/12/19 History Acetaminophen Tab [Tylenol] 650 mg PO Q4H PRN 10/22/18 01/12/19 History Docusate [Colace] 100 mg PO BID@0800,199910/22/18 01/12/19 History Losartan Potassium 100 mg PO DAILY@1600 10/22/18 01/12/19 History Timolol 0.5% Ophth Soln (Pf) 1 drops BOTH EYES HS@199910/22/18 01/12/19 History [Timoptic 0.5% Ocudose] levETIRAcetam [Keppra] 500 mg PO BID@0800,199910/22/18 01/12/19 History Labetalol [Trandate] 50 mg PO BID@0600,1800 #0 11/29/18 01/12/19 Rx hydrALAZINE HCL [Apresoline] 100 mg PO TID #90 tab 11/29/18 01/12/19 Rx ALPRAZolam [Xanax] 0.25 mg PO Q6H PRN 01/12/19 01/12/19 History Cyanocobalamin (Vitamin B-12) 1,000 mcg PO DAILY 01/12/19 01/12/19 History [Vitamin B-12] Eucalyptus Oil/Menthol/Camphor 1 applic TOPICAL HS 01/12/19 01/12/19 History [Vicks Vaporub Ointment] NIFEdipine [NIFEdipine ER] 90 mg PO DAILY 01/12/19 01/12/19 History traZODone HCL 50 mg PO HS 01/12/19 01/12/19 History Allergies Allergy/AdvReac Type Severity Reaction Status Date / Time Penicillins Allergy Unknown Verified 01/12/19 07:45 Physical Examination - Vital Signs Vital Signs: Vital Signs Temp Pulse Resp BP Pulse Ox 01/15/19 11:37 97.4 F L 80 18 194/89 95 01/15/19 08:35 78 18 01/15/19 04:45 98.0 F 78 18 175/81 92 L 01/14/19 20:43 74 168/57 01/14/19 20:36 98.2 F 87 18 195/92 94 L 01/14/19 16:56 78 131/71 Intake and Output 01/14/19 01/15/19 01/15/19 22:59 06:59 14:59 Intake Total 150 Output Total 120 300 Balance -120 -150 Intake: Oral 150 Output: Urine 120 300 Other: Voiding Method Urinal Urinal # Voids 400 On examination patient is an elderly male, in no distress. He is alert and awake. There is no carotid bruit on either sides. No murmur. His speech and language functions are normal. On cranial nerve examination his pupils are round and reactive to light. Visual puente are full on confrontation. Extraocular muscles are intact. Face is symmetric and tongue protrudes in midline. On muscle strength testing the strength is normal in the right arm and right leg. On the left side his shoulder is weak probably from arthritis. Biceps triceps and contact center team lead are normal. His left knee and ankles and toes are normal. Patient was guarding for left hip flexion because of pelvic fracture. Reflexes are 1 in the upper limbs, 2+ at the right knee, 1 on the left and absent ankles and plantar is downgoing. Results - Laboratory Findings CBC and BMP: 01/14/19 07:07 01/15/19 07:39 Abnormal Lab Findings: Abnormal Labs 01/12/19 01/12/19 01/12/19 08:00 08:00 08:00 WBC 17.0 H RBC 4.14 L Hgb 12.4 L Hct 37.5 L Plt Count Neutrophils # 15.4 H Lymphocytes # 0.7 L Sodium BUN 23 H Glucose 112 H Urine Protein Trace H 01/14/19 01/14/19 01/15/19 07:07 07:07 07:39 WBC RBC 3.77 L Hgb 11.5 L Hct 34.5 L Plt Count 146 L Neutrophils # Lymphocytes # 0.7 L Sodium 135 L 136 L BUN 29 H 30 H Glucose Urine Protein Assessment and Plan Assessment: * Status post mechanical fall with subsequent left pubic ramus fracture. * No clinical evidence of TIA or stroke at this time. * Gait imbalance, probably multifactorial. * History of subdural hematoma, status post craniotomy times twice in August 2018 and October 2018. 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 * Hypertension Plan: Patient has no clinical evidence of TIA or CVA at this time. Patient cannot be on antiplatelet medication at this time because of recent craniotomy for subdural hematoma. Patient may benefit from inpatient rehabilitation for gait and balance training. Regarding cognitive impairment, I discussed with patient's daughter about empirically starting him on Aricept versus having him seen by a neurologist locally as an outpatient after he has been discharged home and is in usual state of environment. Patient's daughter wants to hold off on any cognitive enhancing medication at this time. Patient is otherwise neurologically clear.
--- NOTE | 2019-01-15 16:06 | PN ---
PROGRESS NOTE DATE OF SERVICE: 01/15/2019 PRESENTING COMPLAINT: Fall. INTERVAL HISTORY: The patient presented with pubic rami fractures following a fall and also had pneumonia. Doing well, sitting up on a chair. Talking more. Patient's blood pressure has been running high this morning. Will adjust the blood pressure. Pain is controlled. REVIEW OF SYSTEMS: Done for constitutional, cardiovascular, GI, pulmonary, musculoskeletal; relevant findings as above. CURRENT MEDICATIONS: Reviewed. PHYSICAL EXAMINATION: VITAL SIGNS: Temperature 97.4, pulse 80, respiration 18, blood pressure 194/89, pulse ox 95% on room air. GENERAL APPEARANCE: Sitting up in a chair. More comfortable. EYES: Pupils equal. Conjunctivae normal. NECK: JVD not raised. Mass not palpable. RESPIRATORY: Effort normal. LUNGS: Decreased breath sounds. CARDIOVASCULAR: First and second sounds normal. No edema. ABDOMEN: Soft, non-tender. Liver and spleen not palpable. PSYCHIATRY: Awake. Answering questions. INVESTIGATIONS: Potassium 4.1, BUN 30, creatinine 1.04. ASSESSMENT: 1. Left-sided inferior and superior pubic rami fractures secondary to fall. 2. Pneumonia. 3. 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 4. Essential hypertension. 5. Primary osteoarthritis. 6. Chronic gait dysfunction. Uses a walker. 7. Chronic urine incontinence. 8. Hyperlipidemia. 9. Benign prostatic hypertrophy. PLAN: Will increase patient's labetalol to 100 mg twice a day and get manual blood pressures. I did get a call from the nurse that family was concerned about a stroke and wanted to make sure. I did go ahead and consult Neurology for the same. On a clinical basis, I do not think the patient's clinical findings are compatible with stroke at all. If blood pressure is controlled, hoping the patient can go to the [facility] tomorrow. MMODL / IJN: [id number] /
[2019-01-15] MEDS: LOSARTAN 50 MG TAB PO SCH (16:17)
[2019-01-15] MEDS: TIMOLOL 0.5% OPHTH DROPS 5 ML BTL BOTH EYES SCH (22:22)
[2019-01-15] MEDS: traZODone HCL 50 MG TAB PO SCH (22:23)
[2019-01-15] MEDS: ACETAMINOPHEN TAB 325 MG TAB PO PRN (22:23)
[2019-01-16] MEDS: BRIMONIDINE TARTRATE 0.2% DROPS 5 ML BTL BOTH EYES SCH (05:24)
[2019-01-16] MEDS: KETOROLAC 30 MG/ML 1 ML VIAL IVP PRN (05:25)
[2019-01-16] MEDS: DOCUSATE 100 MG CAP PO SCH (08:53)
[2019-01-16] MEDS: TAMSULOSIN 0.4 MG CAP.ER.24H PO SCH (08:53)
[2019-01-16] MEDS: CYANOCOBALAMIN 500 MCG TAB PO SCH (08:53)
[2019-01-16] MEDS: hydrALAZINE HCL 50 MG TAB PO SCH (08:53)
[2019-01-16] MEDS: levETIRAcetam 500 MG TAB PO SCH (08:54)
[2019-01-16] MEDS: ENOXAPARIN 40 MG/0.4 ML SYRINGE SQ SCH (08:54)
[2019-01-16] MEDS: PRAVASTATIN SODIUM 20 MG TAB PO SCH (08:56)
[2019-01-16] MEDS: NIFEdipine XL 90 MG TAB.ER.24 PO SCH (08:56)
[2019-01-16] MEDS: LABETALOL 100 MG TAB PO SCH (08:56)
[2019-01-16] MEDS: AZITHROMYCIN 500 MG TAB PO SCH (08:56)
[2019-01-16 09:34] LABS: Calcium 9.4 mg/dL (8.4-10.2); Potassium 3.6 mmol/L (3.5-5.1)
[2019-01-16 11:49] VITALS: BP 172/74; PULSE 54; RESP 17; TEMP 97.7
--- NOTE | 2019-01-16 13:07 | DS ---
DISCHARGE SUMMARY DATE OF ADMISSION: 01/12/2019 DATE OF DISCHARGE: 01/16/2019 FINAL DIAGNOSES: 1. Fall with left-sided inferior and superior pubic rami fracture. 2. Pneumonia, suspect gram-negative organism, POA. 3. 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 4. Essential hypertension. 5. Primary osteoarthritis. 6. Chronic gait dysfunction uses a walker. 7. Chronic urinary incontinence. 8. Hyperlipidemia. 9. BPH next. CONSULTATIONS: 1. Dr. Simmons from Orthopedics. 2. Dr. Lovell from Neurology. HOSPITAL COURSE: This is a pleasant 88-year-old gentleman presented after taking a fall who normally lives at [facility]. Patient is found to have pubic rami fracture, both superior and inferior seen by Orthopedics. No surgical intervention. The give activity orders. there was the patient's CT scan of the brain showed chronic changes. Family is concerned about a stroke per Dr. Lovell was consulted from Neurology. The clinical picture was not compatible with stroke not otherwise any clinical findings today spoke to patient's daughter and the patient. Patient doing much better. Able to carry out a simple couple conversation, able to tolerate a diet. Activity orders per Dr. Simmons. Patient also had some pain in the left shoulder from fall and fracture was negative on the x-ray. Orthopedics following the same. Discussion and discharge planning more than 35 minutes. PHYSICAL EXAMINATION: Temperature 97.8, pulse 65, respiration 18, blood pressure 109/62, pulse ox 93%on room air lungs decreased breath sounds cardiovascular 1st and 2nd sounds normal. The patient is able answer simple questions. INVESTIGATIONS: White count 8.8, hemoglobin 11.5, potassium 3.6, BUN 35, creatinine 1.20 1.20. DISCHARGE MEDICATIONS: Alphagan 0.2% 1 drop to both eyes, t.i.d., Pravachol 20 mg p.o. daily. Flomax 0.4 mg p.o. daily at 8 am, Tylenol 650 mg q.4 p.r.n. Colace 100 mg b.i.d., losartan 100 mg p.o. daily 4 p.m., Timoptic 0.5% both eyes q.h.s., Keppra 500 mg b.i.d., , vitamin B12 one thousand mcg p.o. daily, Vicks' VapoRub topical q.h.s., nifedipine 90 mg p.o. daily, trazodone 50 mg q.h.s., Xanax 0.25 q.6 p.r.n., labetalol 100 mg p.o. b.i.d. DISPOSITION: [facility] the [place]. Follow up with Dr. Saldana at the [facility]. Follow up with Dr. Beltre after DC from the [facility]. Discussion and discharge planning more than 35 minutes. MMODL / IJN: [id number] /
--- NOTE | 2019-01-16 15:36 | P.PN ---
Subjective Progress Note Date: 01/16/19 Since last seen, patient denies any new neurological symptoms. Denies headache. Still complained of pain and weakness of the left hip. States is going [place] a [place] [facility] today for further rehabilitation. Objective - Vital Signs Vital signs: Vital Signs Temp 97.7 F 01/16/19 11:33 Pulse 54 L 01/16/19 11:33 Resp 17 01/16/19 11:33 BP 172/74 01/16/19 11:33 Pulse Ox 97 01/16/19 11:33 Intake & Output 01/15/19 01/16/19 01/16/19 18:59 06:59 18:59 Intake Total 240 440 Output Total 300 150 Balance -60 290 Intake: Oral 240 440 Output: Urine 300 150 Other: Voiding Method Urinal Bedside Commode Bedside Commode Urinal Urinal # Voids 2 3 # Bowel Movements 1 - Exam Patient's mental status, speech and language functions are stable. Patient is pleasantly slightly confused. Muscle strength is normal in the arms and legs except left hip flexion and left deltoid - Labs CBC & Chem 7: 01/14/19 07:07 01/16/19 08:27 Labs: Abnormal Lab Results - Last 24 Hours (Table) 01/16/19 Range/Units 08:27 BUN 35 H (9-20) mg/dL Glucose 113 H (74-99) mg/dL Microbiology - Last 24 Hours (Table) 01/12/19 09:25 Blood Culture - Preliminary Blood No Growth after 96 hours Assessment and Plan Assessment: * Status post mechanical fall with subsequent left pubic ramus fracture. * No clinical evidence of TIA or stroke at this time. * Gait imbalance, probably multifactorial. * History of subdural hematoma, status post craniotomy times twice in August 2018 and October 2018. 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 * Hypertension Plan: Patient has no clinical evidence of TIA or CVA at this time. Patient cannot be on antiplatelet medication at this time because of recent craniotomy for subdural hematoma. Patient going to subacute rehabilitation today. Regarding cognitive impairment, I discussed with patient's daughter about em pirically starting him on Aricept versus having him seen by a neurologist locally as an outpatient after he has been discharged home and is in usual state of environment. Patient's daughter wants to hold off on any cognitive enhancing medication at this time. Patient is otherwise neurologically clear. DVT prophylaxis as per IM.
== END 2019-01-16 15:40 | DRG 535 ==
LOC: EC 07:20 → 3NMEDONC 09:15
PROVIDERS: ADMIT Hospitalist; ATTEND Hospitalist
DX: S32.592A Other specified fracture of left pubis, initial encounter for closed fracture (principal); J15.6 Pneumonia due to other Gram-negative bacteria; W18.30XA Fall on same level, unspecified, initial encounter; E78.5 Hyperlipidemia, unspecified; G30.9 Alzheimer's disease, unspecified; F02.80 Dementia in other diseases classified elsewhere, unspecified severity, without behavioral disturbance, psychotic disturbance, mood disturbance, and anxiety; G20 Parkinson's disease; H40.9 Unspecified glaucoma; I10 Essential (primary) hypertension; Z86.79 Personal history of other diseases of the circulatory system; K21.9 Gastro-esophageal reflux disease without esophagitis; M19.90 Unspecified osteoarthritis, unspecified site; N40.1 Benign prostatic hyperplasia with lower urinary tract symptoms; N39.498 Other specified urinary incontinence; Z79.899 Other long term (current) drug therapy; Z86.73 Personal history of transient ischemic attack (TIA), and cerebral infarction without residual deficits; Z87.891 Personal history of nicotine dependence; Z96.642 Presence of left artificial hip joint; Z98.49 Cataract extraction status, unspecified eye; Z90.49 Acquired absence of other specified parts of digestive tract; M25.512 Pain in left shoulder; R26.9 Unspecified abnormalities of gait and mobility; Z88.0 Allergy status to penicillin
CPT/HCPCS: 36415; 70450; 71045; 71046; 73502; 80048; 80053; 80306; 81003; 83605; 84484; 85025; 85610; 85730; 87040; 93005; 94760; 96360; 96372; 99285

== ENCOUNTER → 2019-03-22 | Outpatient (CLI) | payer MEDICARE, BC ==
--- NOTE | 2019-03-22 15:17 | CT ---
EXAMINATION TYPE: CT brain wo con DATE OF EXAM: 03/22/2019 HISTORY: headache CT DLP: 1162 mGycm. Automated Exposure Control for Dose Reduction was Utilized. TECHNIQUE: CT scan of the head is performed without contrast. COMPARISON: CT brain January 12, 2019. FINDINGS: There is no acute intracranial hemorrhage or midline shift identified. There is diffuse v entricular and sulcal prominence consistent with diffuse age-related cerebral atrophy. There is low- attenuation in the periventricular white matter most likely on basis of product of chronic small vess el ischemic change in patient of this age. Scleral consultation bilateral globes is seen. There is vascular calcification distal internal carotid arteries bilaterally. IMPRESSION: No acute intracranial hemorrhage or midline shift. There is mild to moderate diffuse ag e-related cerebral atrophy and moderate chronic small vessel ischemic change redemonstrated. No sign ificant change from prior.
== END | disposition home or self-care (01) ==
LOC: RADCTMAIN 14:32
PROVIDERS: ATTEND Family Medicine
DX: I67.82 Cerebral ischemia (principal); G31.1 Senile degeneration of brain, not elsewhere classified
CPT/HCPCS: 70450

== ENCOUNTER → 2019-05-25 | Outpatient (CLI) | payer MEDICARE, BC ==
--- NOTE | 2019-05-26 17:27 | CT ---
EXAMINATION TYPE: CT brain wo con DATE OF EXAM: 05/25/2019 HISTORY: Altered mental status CT DLP: 1177 mGycm. Automated Exposure Control for Dose Reduction was Utilized. TECHNIQUE: CT scan of the head is performed without contrast. COMPARISON: CT brain March 22, 2019. FINDINGS: There is no acute intracranial hemorrhage or midline shift identified. There is diffuse v entricular and sulcal prominence consistent with diffuse age-related cerebral atrophy. There is low- attenuation in the periventricular white matter consistent with chronic small vessel ischemic change. The globes are intact and the visualized sinuses are clear. IMPRESSION: No acute intracranial hemorrhage or midline shift. There is moderate diffuse age-relate d cerebral atrophy and chronic small vessel ischemic change redemonstrated. There is no significant change from prior study.
== END | disposition home or self-care (01) ==
LOC: RADCTMAIN 10:17
PROVIDERS: ATTEND Family Medicine
DX: G30.1 Alzheimer's disease with late onset (principal); R21 Rash and other nonspecific skin eruption; F41.9 Anxiety disorder, unspecified; Z23 Encounter for immunization
CPT/HCPCS: 70450